=== PATIENT | male | born 1945 ===

== ENCOUNTER 2019-08-19 16:10 | Inpatient (IN) | payer MEDICARE ==
[2019-08-19] MEDS ORDERED: SODIUM CHLORIDE 0.9% 1000 ML IV SOLN IV ONE (17:08)
[2019-08-19] MEDS ORDERED: SODIUM CHLORIDE 0.9% 500 ML 500 ML IV ONE (17:08)
[2019-08-19 17:39] LABS: Hematocrit 27.4 % (35.5-45.6); Hemoglobin 9.3 gm/dl (11.8-15.2); Mean Corpuscular HGB Conc 34 % (32-34); Mean Corpuscular Volume 92 fl (84-94); Platelet Count 198 K/mm3 (140-440); Red Blood Count 2.99 M/mm3 (3.65-5.03); Red Cell Distribution Width 14.3 % (13.2-15.2)
[2019-08-19 17:49] LABS: INR 0.96 (0.87-1.13); Partial Thromboplastin Time 31.5 Sec. (24.2-36.6)
[2019-08-19 17:57] LABS: Albumin 2.7 g/dL (3.9-5); Calcium 8.3 mg/dL (8.4-10.2)
--- NOTE | 2019-08-19 17:58 | XRay Report ---
CHEST 1 VIEW 5:23 PM INDICATION / CLINICAL INFORMATION: Sepsis. Weakness. COMPARISON: None available. FINDINGS: SUPPORT DEVICES: There is a right jugular CVL with the tip overlying the cavoatrial junction. HEART / MEDIASTINUM: The heart size and pulmonary vasculature are normal. LUNGS / PLEURA: There is mild linear parenchymal opacity in both lower lung zones, left greater than right. No pneumothorax. ADDITIONAL FINDINGS: There are surgical changes in the mid to lower cervical spine. There are also martinez rgical changes involving the right shoulder. IMPRESSION: Mild bibasilar subsegmental atelectasis, greater on the left. Signer Name: Reji Mcconnell MD Signed: 08/19/2019 5:54 PM Workstation Name: [id number]
[2019-08-19] MEDS ORDERED: CEFEPIME/NS 2 GM/100 ML 2 GM/100 ML BAG IV SCH (18:00)
[2019-08-19] MEDS ORDERED: ACETAMINOPHEN 325 MG/10.15 ML ORAL LIQD UNIT DOSE PO ONE (18:20)
--- NOTE | 2019-08-19 18:24 | Emergency Department Report ---
ED General Adult HPI - General Chief complaint: Fever Stated complaint: BLOOD PRESSURE LOW Time Seen by Provider: 08/19/19 16:45 Source: patient, EMS ( EMS documentation not available at time of chart dictation ), RN notes reviewed, old records reviewed Mode of arrival: Stretcher Limitations: Physical Limitation - History of Present Illness Initial comments: Please note that during the entire history and physical examination, and for any further and repeat evaluations, I personally had complete personal protective equipment in place. Patient is a 74-year-old gentleman. He is not known to myself previously. His current primary care physician is Dr. Obrien. 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 He is sent to the emergency room by his detention for evaluation of low-grade temperature, tachycardia and hypotension. He denies physical pain. He denies new or different shortness of breath. He denies chest pain and abdominal pain. There is no complaint of hematemesis and/or bright red blood per rectum. As far as he knows, he has not been exposed to the coronavirus. -: unknown Radiation: other Severity scale (0 -10): 0 Quality: other Consistency: other Improves with: other Worsens with: other - Related Data Home Medications Medication Instructions Recorded Confirmed Last Taken Ascorbic Acid [Vitamin C] 500 mg PO QDAY 08/19/19 08/19/19 Unknown Bismuth Tribromoph/Petrolatum 1 each TP QDAY 08/19/19 08/19/19 Unknown [Xeroform 5"X9" Gauze Strip] Clopidogrel [Plavix] 75 mg PO QDAY 08/19/19 08/19/19 Unknown Clotrimazole 1% [Lotrimin 1%] 1 applic TP BID 08/19/19 08/19/19 Unknown Cyanocobalamin [Vitamin B-12] 500 mcg PO DAILY 08/19/19 08/19/19 Unknown Docusate Sodium [Colace CAP] 100 mg PO BID PRN 08/19/19 08/19/19 Unknown Dorzolamide/Timolol/Pf 1 each OP BID 08/19/19 08/19/19 Unknown [Dorzolamide-Timolol 2%-0.5%] Ferrous Sulfate [Feosol 325 MG tab] 325 mg PO QDAY 08/19/19 08/19/19 Unknown Folic Acid [Folvite] 1 mg PO QDAY 08/19/19 08/19/19 Unknown Furosemide [Lasix TAB] 40 mg PO QDAY 08/19/19 08/19/19 Unknown Gabapentin 300 mg PO BID 08/19/19 08/19/19 Unknown Lanolin /Mo/W.pet/[place] (Nf) 30 applic TP TID 08/19/19 08/19/19 Unknown [EUCERIN (nf)] Linagliptin [Tradjenta] 5 mg PO QDAY 08/19/19 08/19/19 Unknown Loratadine [Claritin] 10 mg PO QDAY 08/19/19 08/19/19 Unknown Oxycodone HCl [roxiCODONE] 30 mg PO Q6HR 08/19/19 08/19/19 Unknown Pantoprazole [Protonix TAB] 40 mg PO QDAY 08/19/19 08/19/19 Unknown Travoprost 5 ml OP QHS 08/19/19 08/19/19 Unknown diphenhydrAMINE [Benadryl CAP] 25 mg PO Q6HR PRN 08/19/19 08/19/19 Unknown Previous Rx's Medication Instructions Recorded Last Taken Type Acetaminophen [Acetaminophen TAB] 325 mg PO Q4H PRN #30 tablet 08/24/19 Unknown Rx Digoxin [Lanoxin] 0.125 mg PO DAILY@1700 #30 tablet 08/24/19 Unknown Rx Metoprolol [Lopressor TAB] 50 mg PO BID #60 tablet 08/24/19 Unknown Rx ceFAZolin/NS 2 GM/100 ML [Ancef/Ns 2 gm IM Q8HR #168 piggyback 08/24/19 Unknown Rx 2 gm/100 ml] oxyCODONE /ACETAMINOPHEN [Percocet 1 tab PO Q6H PRN #8 tablet 08/24/19 Unknown Rx 5/325 mg] Allergies Allergy/AdvReac Type Severity Reaction Status Date / Time NSAIDS (Non-Steroidal Allergy Unknown Verified 08/19/19 16:47 Anti-Inflamma ED Review of Systems ROS: Stated complaint: BLOOD PRESSURE LOW Other details as noted in HPI Constitutional: weakness Respiratory: denies: cough Cardiovascular: denies: syncope Gastrointestinal: denies: nausea, vomiting, hematemesis, melena, hematochezia Genitourinary: denies: dysuria Musculoskeletal: as per HPI, myalgia (Chronic) Skin: as per HPI Neurological: as per HPI, weakness Hematological/Lymphatic: denies: easy bleeding ED Past Medical Hx - Past Medical History Previous Medical History?: Yes Hx Hypertension: Yes Hx Diabetes: Yes Hx GERD: Yes Hx Renal Disease: Yes - Surgical History Past Surgical History?: No - Social History Smoking Status: Unknown if ever smoked - Medications Home Medications: Home Medications Medication Instructions Recorded Confirmed Last Taken Type Ascorbic Acid [Vitamin C] 500 mg PO QDAY 08/19/19 08/19/19 Unknown History Bismuth Tribromoph/Petrolatum 1 each TP QDAY 08/19/19 08/19/19 Unknown History [Xeroform 5"X9" Gauze Strip] Clopidogrel [Plavix] 75 mg PO QDAY 08/19/19 08/19/19 Unknown History Clotrimazole 1% [Lotrimin 1%] 1 applic TP BID 08/19/19 08/19/19 Unknown History Cyanocobalamin [Vitamin B-12] 500 mcg PO DAILY 08/19/19 08/19/19 Unknown History Docusate Sodium [Colace CAP] 100 mg PO BID PRN 08/19/19 08/19/19 Unknown History Dorzolamide/Timolol/Pf 1 each OP BID 08/19/19 08/19/19 Unknown History [Dorzolamide-Timolol 2%-0.5%] Ferrous Sulfate [Feosol 325 MG tab] 325 mg PO QDAY 08/19/19 08/19/19 Unknown History Folic Acid [Folvite] 1 mg PO QDAY 08/19/19 08/19/19 Unknown History Furosemide [Lasix TAB] 40 mg PO QDAY 08/19/19 08/19/19 Unknown History Gabapentin 300 mg PO BID 08/19/19 08/19/19 Unknown History Lanolin /Mo/W.pet/[place] (Nf) 30 applic TP TID 08/19/19 08/19/19 Unknown History [EUCERIN (nf)] Linagliptin [Tradjenta] 5 mg PO QDAY 08/19/19 08/19/19 Unknown History Loratadine [Claritin] 10 mg PO QDAY 08/19/19 08/19/19 Unknown History Oxycodone HCl [roxiCODONE] 30 mg PO Q6HR 08/19/19 08/19/19 Unknown History Pantoprazole [Protonix TAB] 40 mg PO QDAY 08/19/19 08/19/19 Unknown History Travoprost 5 ml OP QHS 08/19/19 08/19/19 Unknown History diphenhydrAMINE [Benadryl CAP] 25 mg PO Q6HR PRN 08/19/19 08/19/19 Unknown History Acetaminophen [Acetaminophen TAB] 325 mg PO Q4H PRN #30 tablet 08/24/19 Unknown Rx Digoxin [Lanoxin] 0.125 mg PO DAILY@1700 #30 tablet 08/24/19 Unknown Rx Metoprolol [Lopressor TAB] 50 mg PO BID #60 tablet 08/24/19 Unknown Rx ceFAZolin/NS 2 GM/100 ML [Ancef/Ns 2 gm IM Q8HR #168 piggyback 08/24/19 Unknown Rx 2 gm/100 ml] oxyCODONE /ACETAMINOPHEN [Percocet 1 tab PO Q6H PRN #8 tablet 08/24/19 Unknown Rx 5/325 mg] ED Physical Exam - General Limitations: Physical Limitation General appearance: alert, anxious - Head Head exam: Present: atraumatic, normocephalic - Eye Eye exam: Present: normal appearance, EOMI - ENT ENT exam: Present: mucous membranes dry, normal external ear exam - Neck Neck exam: Present: normal inspection, full ROM. Absent: tenderness, meningismus - Respiratory Respiratory exam: Present: normal lung sounds bilaterally. Absent: respiratory distress, wheezes, rales, rhonchi, stridor, decreased breath sounds - Cardiovascular Cardiovascular Exam: Present: tachycardia, normal heart sounds. Absent: systolic murmur, diastolic murmur, rubs, gallop - GI/Abdominal GI/Abdominal exam: Present: soft. Absent: distended, tenderness, guarding, rebound, rigid, pulsatile mass - Rectal Rectal exam: Present: deferred - Extremities Exam Extremities exam: Present: normal inspection, pedal edema, other (2+ pulses noted in the bilateral upper and lower extremities. There is no palpable cord. negative Homans sign. Muscular compartments are soft. The pelvis is stable.). Absent: calf tenderness - Back Exam Back exam: Present: normal inspection. Absent: tenderness, CVA tenderness (R), CVA tenderness (L), paraspinal tenderness, vertebral tenderness - Neurological Exam Neurological exam: Present: alert, other (There is no facial droop. The tongue is midline. Extraocular movements are intact bilaterally. There is 5 out of 5 strength in bilateral upper and lower extremities. Sensation is intact to light touch bilateral upper and lower extremities. ) - Psychiatric Psychiatric exam: Present: normal affect, normal mood - Skin Skin exam: Present: warm, dry, intact, normal color. Absent: rash ED Course Vital Signs 08/19/19 08/19/19 08/19/19 16:41 16:45 16:52 Temperature 99.3 F Pulse Rate 153 H 153 H Respiratory 11 L 13 Rate Blood Pressure 94/66 Blood Pressure 93/61 [Right] O2 Sat by Pulse 97 Oximetry 08/19/19 08/19/19 08/19/19 18:16 18:20 19:00 Temperature Pulse Rate 152 H 150 H Respiratory 11 L 13 14 Rate Blood Pressure 91/64 96/64 Blood Pressure [Right] O2 Sat by Pulse 83 L 60 L Oximetry 08/19/19 08/19/19 08/19/19 19:35 19:46 20:00 Temperature Pulse Rate 147 H 140 H 147 H Respiratory 16 14 Rate Blood Pressure 96/64 100/59 110/64 Blood Pressure [Right] O2 Sat by Pulse Oximetry 08/19/19 08/19/19 08/19/19 20:16 20:30 20:46 Temperature Pulse Rate 149 H 151 H 152 H Respiratory 16 12 18 Rate Blood Pressure 96/64 109/73 109/73 Blood Pressure [Right] O2 Sat by Pulse 83 L 97 Oximetry 08/19/19 08/19/19 08/19/19 20:51 21:00 21:16 Temperature Pulse Rate 152 H 143 H 142 H Respiratory 16 14 Rate Blood Pressure 109/73 109/73 109/73 Blood Pressure [Right] O2 Sat by Pulse 99 100 Oximetry 08/19/19 08/19/19 08/19/19 21:30 21:46 22:00 Temperature Pulse Rate 138 H 147 H 152 H Respiratory 14 15 16 Rate Blood Pressure 109/73 109/73 109/73 Blood Pressure [Right] O2 Sat by Pulse 99 91 Oximetry 08/19/19 08/19/19 08/19/19 22:16 22:28 22:30 Temperature Pulse Rate 129 H 127 H 127 H Respiratory 14 11 L 12 Rate Blood Pressure 109/73 109/73 98/59 Blood Pressure [Right] O2 Sat by Pulse 100 100 98 Oximetry 08/19/19 08/19/19 08/20/19 23:00 23:30 00:00 Temperature Pulse Rate 126 H 112 H 116 H Respiratory 16 18 16 Rate Blood Pressure 98/59 89/54 88/54 Blood Pressure [Right] O2 Sat by Pulse 99 95 71 L Oximetry 08/20/19 08/20/19 08/20/19 00:30 01:00 01:30 Temperature Pulse Rate 108 H 95 H 95 H Respiratory 16 17 18 Rate Blood Pressure 82/47 78/42 76/42 Blood Pressure [Right] O2 Sat by Pulse 100 Oximetry 08/20/19 08/20/19 08/20/19 02:00 02:30 03:00 Temperature Pulse Rate 91 H 99 H 112 H Respiratory 17 18 18 Rate Blood Pressure 85/43 89/48 94/35 Blood Pressure [Right] O2 Sat by Pulse 98 62 L Oximetry 08/20/19 08/20/19 08/20/19 03:30 04:00 04:30 Temperature Pulse Rate 125 H 129 H 121 H Respiratory 19 16 19 Rate Blood Pressure 95/53 95/53 80/49 Blood Pressure [Right] O2 Sat by Pulse 60 L Oximetry 08/20/19 08/20/19 08/20/19 05:00 05:30 06:00 Temperature Pulse Rate 126 H 118 H 115 H Respiratory 11 L 20 21 Rate Blood Pressure 80/49 92/57 95/59 Blood Pressure [Right] O2 Sat by Pulse 97 98 Oximetry 08/20/19 08/20/19 08/20/19 06:30 07:00 07:30 Temperature Pulse Rate 111 H 114 H 115 H Respiratory 21 22 22 Rate Blood Pressure 93/58 85/52 92/55 Blood Pressure [Right] O2 Sat by Pulse 92 100 100 Oximetry 08/20/19 08/20/19 08/20/19 08:00 08:30 09:00 Temperature 99.4 F Pulse Rate 116 H 111 H 123 H Respiratory 17 22 20 Rate Blood Pressure 91/54 100/61 Blood Pressure 87/55 [Right] O2 Sat by Pulse 99 98 100 Oximetry 08/20/19 08/20/19 08/20/19 09:30 10:00 10:30 Temperature Pulse Rate 123 H Respiratory 24 22 22 Rate Blood Pressure 98/55 99/56 96/54 Blood Pressure [Right] O2 Sat by Pulse 98 96 97 Oximetry 08/20/19 08/20/19 08/20/19 11:00 11:30 12:00 Temperature Pulse Rate Respiratory 24 21 22 Rate Blood Pressure 104/58 102/56 95/60 Blood Pressure [Right] O2 Sat by Pulse 93 97 100 Oximetry 08/20/19 08/20/19 08/20/19 12:30 13:00 13:30 Temperature Pulse Rate Respiratory 20 20 26 H Rate Blood Pressure 91/55 101/58 100/59 Blood Pressure [Right] O2 Sat by Pulse 100 96 98 Oximetry 08/20/19 14:00 Temperature Pulse Rate 132 H Respiratory 26 H Rate Blood Pressure 110/64 Blood Pressure [Right] O2 Sat by Pulse Oximetry - Reevaluation(s) Reevaluation #1: 08/19/19 18:49 Differential diagnosis, including but not limited to: Pneumonia, bacteremia, viremia, urinary tract infection, arrhythmia, dehydration, pulmonary embolism Assessment and plan: 74-year-old gentleman presenting with low-grade temperature, narrow complex regular tachycardia, uncertain if SVT versus a flutter with 2-1 conduction versus sinus tachycardia. We will treat him empirically according to the sepsis pathway. He will be started on unfractionated heparin, and we will obtain a CT scan of the chest. He is currently placed on isolation precautions given relative immune compromise. He will be treated empirically with cefepime. He reports that he does not have true anaphylaxis or anaphylactoid reaction to acetaminophen. We will reassess after his initial resuscitation and CT scan have resulted. The case was presented to the hospital physician, Dr. Joshua Lawson WHO will admit the patient 08/19/19 18:50 we will also fill out a covid 19 pui form, although based off of the history and physical examination at this time, I think coronavirus infection is very unlikely. Reevaluation #2: 08/19/19 18:51 Plan to repeat 12-lead EKG with sree lead lead application Reevaluation #3: 08/19/19 19:51 Blood pressure improved. Heart rate now in the high 130s. Repeat EKG with Sree leads suggests a flutter with 2-[address] scan of the chest pending interpretation. Reevaluation #4: 08/19/19 20:39 Patient still remains in a flutter with 2-1 conduction and rapid ventricular rate. Diltiazem drip is ordered. CT scan is appreciated. Hospital physician is updated. We will fill out to the coronavirus persons under investigation form. ED Medical Decision Making - Lab Data Result diagrams: 08/23/19 04:28 08/23/19 04:28 Vital Signs 08/19/19 08/19/19 08/19/19 16:41 16:45 16:52 Temperature 99.3 F Pulse Rate 153 H 153 H Respiratory 11 L 13 Rate Blood Pressure 94/66 Blood Pressure 93/61 [Right] O2 Sat by Pulse 97 Oximetry 08/19/19 18:16 Temperature Pulse Rate 152 H Respiratory 11 L Rate Blood Pressure 91/64 Blood Pressure [Right] O2 Sat by Pulse 83 L Oximetry Lab Results 08/19/19 08/19/19 08/19/19 Range/Units 17:18 17:18 17:18 WBC 7.7 (4.5-11.0) K/mm3 RBC 2.99 L (3.65-5.03) M/mm3 Hgb 9.3 L (11.8-15.2) gm/dl Hct 27.4 L (35.5-45.6) % MCV 92 (84-94) fl MCH 31 (28-32) pg MCHC 34 (32-34) % RDW 14.3 (13.2-15.2) % Plt Count 198 (140-440) K/mm3 PT 12.9 (12.2-14.9) Sec. INR 0.96 (0.87-1.13) APTT 31.5 (24.2-36.6) Sec. Sodium 129 L (137-145) mmol/L Potassium 3.9 (3.6-5.0) mmol/L Chloride 92.5 L (98-107) mmol/L Carbon Dioxide 23 (22-30) mmol/L Anion Gap 17 mmol/L BUN 24 H (9-20) mg/dL Creatinine 1.5 (0.8-1.5) mg/dL Estimated GFR 46 ml/min BUN/Creatinine Ratio 16 % Glucose 152 H (75-100) mg/dL Lactic Acid (0.7-2.0) mmol/L Calcium 8.3 L (8.4-10.2) mg/dL Magnesium (1.7-2.3) mg/dL Total Bilirubin 0.70 (0.1-1.2) mg/dL AST 35 (5-40) units/L ALT 14 (7-56) units/L Alkaline Phosphatase 132 H (35-129) units/L Total Creatine Kinase (55-170) units/L Total Protein 5.1 L (6.3-8.2) g/dL Albumin 2.7 L (3.9-5) g/dL Albumin/Globulin Ratio 1.1 % TSH (0.270-4.200) mlU/mL Salicylates (2.8-20.0) mg/dL Acetaminophen (10.0-30.0) ug/mL Blood Type Antibody Screen 08/19/19 08/19/19 08/19/19 Range/Units 17:18 17:18 17:18 WBC (4.5-11.0) K/mm3 RBC (3.65-5.03) M/mm3 Hgb (11.8-15.2) gm/dl Hct (35.5-45.6) % MCV (84-94) fl MCH (28-32) pg MCHC (32-34) % RDW (13.2-15.2) % Plt Count (140-440) K/mm3 PT (12.2-14.9) Sec. INR (0.87-1.13) APTT (24.2-36.6) Sec. Sodium (137-145) mmol/L Potassium (3.6-5.0) mmol/L Chloride (98-107) mmol/L Carbon Dioxide (22-30) mmol/L Anion Gap mmol/L BUN (9-20) mg/dL Creatinine (0.8-1.5) mg/dL Estimated GFR ml/min BUN/Creatinine Ratio % Glucose (75-100) mg/dL Lactic Acid 0.80 (0.7-2.0) mmol/L Calcium (8.4-10.2) mg/dL Magnesium 1.80 (1.7-2.3) mg/dL Total Bilirubin (0.1-1.2) mg/dL AST (5-40) units/L ALT (7-56) units/L Alkaline Phosphatase (35-129) units/L Total Creatine Kinase 27 L (55-170) units/L Total Protein (6.3-8.2) g/dL Albumin (3.9-5) g/dL Albumin/Globulin Ratio % TSH 2.660 (0.270-4.200) mlU/mL Salicylates (2.8-20.0) mg/dL Acetaminophen (10.0-30.0) ug/mL Blood Type Antibody Screen 08/19/19 08/19/19 08/19/19 Range/Units 17:18 17:18 17:25 WBC (4.5-11.0) K/mm3 RBC (3.65-5.03) M/mm3 Hgb (11.8-15.2) gm/dl Hct (35.5-45.6) % MCV (84-94) fl MCH (28-32) pg MCHC (32-34) % RDW (13.2-15.2) % Plt Count (140-440) K/mm3 PT (12.2-14.9) Sec. INR (0.87-1.13) APTT (24.2-36.6) Sec. Sodium (137-145) mmol/L Potassium (3.6-5.0) mmol/L Chloride (98-107) mmol/L Carbon Dioxide (22-30) mmol/L Anion Gap mmol/L BUN (9-20) mg/dL Creatinine (0.8-1.5) mg/dL Estimated GFR ml/min BUN/Creatinine Ratio % Glucose (75-100) mg/dL Lactic Acid (0.7-2.0) mmol/L Calcium (8.4-10.2) mg/dL Magnesium (1.7-2.3) mg/dL Total Bilirubin (0.1-1.2) mg/dL AST (5-40) units/L ALT (7-56) units/L Alkaline Phosphatase (35-129) units/L Total Creatine Kinase (55-170) units/L Total Protein (6.3-8.2) g/dL Albumin (3.9-5) g/dL Albumin/Globulin Ratio % TSH (0.270-4.200) mlU/mL Salicylates < 0.3 L (2.8-20.0) mg/dL Acetaminophen < 5.0 L (10.0-30.0) ug/mL Blood Type O POSITIVE Antibody Screen Negative - EKG Data -: EKG Interpreted by Ne Rate: tachycardia - EKG Data When compared to previous EKG there are: previous EKG unavailable 08/19/19 18:50 This is a narrow complex tachycardia, rate 150 bpm, normal axis, the QTC is 504 ms. Rhythm uncertain, sinus tach versus SVT versus a flutter. We will reassess. - Radiology Data Radiology results: report reviewed, image reviewed Print Report Referring Physician: SAI GALARZA Patient Name: LANDRY MONTE Date of : 1945 Sex: Male Report Date: 2019-08-19 Report Status: Finalized Findings [facility] [address] [place] [address] XRay Report Signed Patient: LANDRY MONTE MR#: [id number] : 1945 Acct:[id number] Age/Sex: 74 / M ADM Date: 08/19/19 Loc: ED Attending Dr: Ambrose davis Physician: SAI GALARZA MD Date of Service: 08/19/19 Procedure(s): XR chest 1V ap Accession Number(s): [id number] cc: SAI GALARZA MD Fluoro Time In Minutes: CHEST 1 VIEW 5:23 PM INDICATION / CLINICAL INFORMATION: Sepsis. Weakness. COMPARISON: None available. FINDINGS: SUPPORT DEVICES: There is a right jugular CVL with the tip overlying the cavoatrial junction. HEART / MEDIASTINUM: The heart size and pulmonary vasculature are normal. LUNGS / PLEURA: There is mild linear parenchymal opacity in both lower lung zones, left greater than right. No pneumothorax. ADDITIONAL FINDINGS: There are surgical changes in the mid to lower cervical spine. There are also surgical changes involving the right shoulder. IMPRESSION: Mild bibasilar subsegmental atelectasis, greater on the left. Signer Name: Reji Mcconnell MD Signed: 08/19/2019 5:54 PM Workstation Name: [id number] Transcribed By: RT Dictated By: Reji Mcconnell MD Electronically Authenticated By: Reji Mcconnell MD Signed Date/Time: 08/19/191753 DD/ 51 TD/TT: Print Report Referring Physician: SAI GALARZA Patient Name: LANDRY MONTE Date of : 1945 Sex: Male Report Date: 2019-08-19 Report Status: Finalized Findings [facility] [address] [place] [address] Cat Scan Report Signed Patient: LANDRY MONTE MR#: [id number] : 1945 Acct:[id number] Age/Sex: 74 / M ADM Date: 08/19/19 Loc: 4A [id number]: JAQUELINE LAWSON MD Ordering Physician: SAI GALARZA MD Date of Service: 08/19/19 Procedure(s): CT angio chest Accession Number(s): [id number] cc: SAI GALARZA MD CTA CHEST WITH IV CONTRAST INDICATION / CLINICAL INFORMATION: Tachycardia, fever, hypotension, cancer. TECHNIQUE: Axial CT images were obtained through the chest after injection of 100 mL Omnipaque 350 IV contrast. 3 plane MIP and/or 3D reconstructions were produced. All CT scans at this loca tion are performed using CT dose reduction for ALARA by means of automated exposure control. COMPARISON: Same-day chest radiograph FINDINGS: PULMONARY ARTERIES: No pulmonary emboli. THORACIC AORTA: No significant abnormality. HEART: No significant abnormality. PLEURA: Tiny bilateral pleural effusions. No pneumothorax. LYMPH NODES: There are enlarged lower cervical, supraclavicular, axillary, and mediastinal lymph nodes. LUNGS: Ill-defined linear opacities in both lower lobes posteriorly may represent atelectatic change, aspirated material and/or mild/early pneumonia. There is no large area of consolidated lung parenchyma. Definite atelectatic change is seen in the subpleural lower lobes at the bases, likely due to the presence of a small volumes of pleural fluid. At the apex of the right lung there is linear fibrotic scarring associated with some calcifications. No pulmonary mass or significant discrete pulmonary nodule is identified. There is an ill-defined groundglass opacity in the subpleural left upper lobe on series 3 image 53 ADDITIONAL FINDINGS: Diffuse body wall edema. The tip of the right IJ central line is at the atriocaval junction. UPPER ABDOMEN: Marked splenomegaly. There are enlarged retroperitoneal/aortocaval lymph nodes in the upper abdomen. Evaluation is limited secondary to pulmonary arterial phase of acquisition and beam hardening artifact caused by soft tissue edema. SKELETAL STRUCTURES: No significant osseous abnormality. IMPRESSION: 1. No CT evidence for pulmonary embolism. 2 . Areas of groundglass opacity in the left upper lobe and linear opacities in the lower lobes posteriorly may be from an infectious or inflammatory process. Three-month follow-up CT is recommended to confirm resolution. 3. Tiny bilateral pleural effusions. 4. Splenomegaly and widespread lymphadenopathy are suggestive of an underlying lymphoproliferative disorder. 5. Anasarca. Signer Name: Ori De La Rosa MD Signed: 08/19/2019 8:08 PM Workstation Name: [id number] Transcribed By: HERB Dictated By: Ori De La Rosa MD Electronically Authenticated By: Ori De La Rosa MD Signed Date/Time: 08/19/192007 Critical Care Time: Yes Critical care time in (mins) excluding proc time.: 60 Critical care attestation.: If time is entered above; I have spent that time in minutes in the direct care of this critically ill patient, excluding procedure time. ED Disposition Clinical Impression: Hypotension, Atrial flutter with rapid ventricular response Disposition: DC-[id number] OP ADMIT IP TO THIS HOSP Is pt being admited?: Yes Does the pt Need Aspirin: No Condition: Stable
[2019-08-19] MEDS ORDERED: HEPARIN 10,000 UNITS/10 ML VIAL IV ONE (18:43)
[2019-08-19 19:00] LABS: Basophils % (Manual) 0 % (0.0-1.8); Eosinophils % (Manual) 0 % (0.0-4.3); Total Cells Counted 100
[2019-08-19 19:01] LABS: Anisocytosis 1+; Hypochromasia Few
[2019-08-19 19:02] LABS: Platelet Estimate Consistent w Auto; Tear Drop Cells Rare
[2019-08-19] MEDS: HEPARIN/ 0.45% NACL DRIP 25,000 UNIT/500 ML BAG IV SCH (19:11)
--- NOTE | 2019-08-19 20:12 | Cat Scan Report ---
CTA CHEST WITH IV CONTRAST INDICATION / CLINICAL INFORMATION: Tachycardia, fever, hypotension, cancer. TECHNIQUE: Axial CT images were obtained through the chest after injection of 100 mL Omnipaque 350 IV contrast. 3 plane MIP and/or 3D reconstructions were produced. All CT scans at this location are performed usin g CT dose reduction for DERRICK by means of automated exposure control. COMPARISON: Same-day chest radiograph FINDINGS: PULMONARY ARTERIES: No pulmonary emboli. THORACIC AORTA: No significant abnormality. HEART: No significant abnormality. PLEURA: Tiny bilateral pleural effusions. No pneumothorax. LYMPH NODES: There are enlarged lower cervical, supraclavicular, axillary, and mediastinal lymph node s. LUNGS: Ill-defined linear opacities in both lower lobes posteriorly may represent atelectatic change, aspirated material and/or mild/early pneumonia. There is no large area of consolidated lung parenchy ma. Definite atelectatic change is seen in the subpleural lower lobes at the bases, likely due to the presence of a small volumes of pleural fluid. At the apex of the right lung there is linear fibrotic scarring associated with some calcifications. No pulmonary mass or significant discrete pulmonary nodule is identified. There is an ill-defined frank undglass opacity in the subpleural left upper lobe on series 3 image 53 ADDITIONAL FINDINGS: Diffuse body wall edema. The tip of the right IJ central line is at the atriocav al junction. UPPER ABDOMEN: Marked splenomegaly. There are enlarged retroperitoneal/aortocaval lymph nodes in the upper abdomen. Evaluation is limited secondary to pulmonary arterial phase of acquisition and beam fontaine rdening artifact caused by soft tissue edema. SKELETAL STRUCTURES: No significant osseous abnormality. IMPRESSION: 1. No CT evidence for pulmonary embolism. 2. Areas of groundglass opacity in the left upper lobe and linear opacities in the lower lobes poste riorly may be from an infectious or inflammatory process. Three-month follow-up CT is recommended to confirm resolution. 3. Tiny bilateral pleural effusions. 4. Splenomegaly and widespread lymphadenopathy are suggestive of an underlying lymphoproliferative d isorder. 5. Anasarca. Signer Name: Ori De La Rosa MD Signed: 08/19/2019 8:08 PM Workstation Name: [id number]
[2019-08-19 20:32] LABS: Hematocrit 27.3 % (35.5-45.6); Hemoglobin 9.4 gm/dl (11.8-15.2)
[2019-08-19 20:34] LABS: Bacteria,Urine 1+ /HPF (Negative); Bilirubin,Urine NEG (Negative); Blood,Urine NEG (Negative); Color,Urine Yellow (Yellow); Mucus,Urine FEW /HPF; Urobilinogen,Urine < 2.0 mg/dL (<2.0)
[2019-08-19] MEDS ORDERED: dilTIAZem/D5W 100 MG/100 ML BAG IV SCH (21:00)
[2019-08-19] MEDS ORDERED: DORZOLAMIDE OP SCH (23:45)
[2019-08-19] MEDS ORDERED: TIMOLOL OP SCH (23:45)
[2019-08-19] MEDS ORDERED: diphenhydrAMINE 25 MG CAP PO PRN (23:47)
[2019-08-19] MEDS ORDERED: DOCUSATE SODIUM 100 MG CAP PO PRN (23:47)
--- NOTE | 2019-08-19 23:58 | History and Physical Report ---
History of Present Illness Date of examination: 08/19/19 Date of admission: 08/19/19 18:53 Chief complaint: Fever--2 to 3 days Palpitations History of present illness: 74-year-old male with history of glaucoma, CHF, type 2 diabetes, GERD and anemia and peripheral neuropathy sent from [facility] for low-grade fever: Tachycardia and hypotension. No chest pain. No shortness of breath. No chills. Patient has palpitations. Patient has A. fib with RVR in the emergency room. Patient was found to have bilateral patchy pneumonia--hence being admitted for rule out covid 19, isolation and empiric antibiotics. Not in any respiratory distress. No exposure to coronavirus. No recent travel. Because of the chest x-ray experience with some groundglass opacity C ovid19 form was filled out by ER physician Dr. miguel Past Medical History Previous Medical History?: Yes Hypertension: Yes Diabetes: Yes GERD: Yes Renal Disease: Yes Surgical History Past Surgical History?: No Family history Htn Social History Smoking Status: Unknown if ever smoked - Medications Home Medications: Home Medications Medication Instructions Recorded Confirmed Last Taken Type Ascorbic Acid [Vitamin C] 500 mg PO QDAY 08/19/19 08/19/19 Unknown History Bismuth Tribromoph/Petrolatum 1 each TP QDAY 08/19/19 08/19/19 Unknown History [Xeroform 5"X9" Gauze Strip] Clopidogrel [Plavix] 75 mg PO QDAY 08/19/19 08/19/19 Unknown History Clotrimazole 1% [Lotrimin] 1 applic TP BID 08/19/19 08/19/19 Unknown History Cyanocobalamin [Vitamin B-12] 500 mcg PO DAILY 08/19/19 08/19/19 Unknown History Docusate Sodium [Colace] 100 mg PO BID PRN 08/19/19 08/19/19 Unknown History Dorzolamide/Timolol/Pf 1 each OP BID 08/19/19 08/19/19 Unknown History [Dorzolamide-Timolol 2%-0.5%] Ferrous Sulfate [Feosol] 325 mg PO QDAY 08/19/19 08/19/19 Unknown History Folic Acid [Folvite] 1 mg PO QDAY 08/19/19 08/19/19 Unknown History Furosemide [Lasix TAB] 40 mg PO QDAY 08/19/19 08/19/19 Unknown History Gabapentin [Neurontin] 300 mg PO BID 08/19/19 08/19/19 Unknown History Lanolin /Mo/W.pet/[place] (Nf) 30 applic TP TID 08/19/19 08/19/19 Unknown History [EUCERIN (nf)] Linagliptin [Tradjenta] 5 mg PO QDAY 08/19/19 08/19/19 Unknown History Loratadine [Claritin] 10 mg PO QDAY 08/19/19 08/19/19 Unknown History Oxycodone HCl [roxiCODONE] 30 mg PO Q6HR 08/19/19 08/19/19 Unknown History Pantoprazole [Protonix] 40 mg PO QDAY 08/19/19 08/19/19 Unknown History Travoprost 5 ml OP QHS 08/19/19 08/19/19 Unknown History diphenhydrAMINE [Benadryl CAP] 25 mg PO Q6HR PRN 08/19/19 08/19/19 Unknown History Review of Systems ROS: Stated complaint: BLOOD PRESSURE LOW Other details as noted in HPI Constitutional: weakness Respiratory: denies: cough Cardiovascular: denies: syncope Gastrointestinal: denies: nausea, vomiting, hematemesis, melena, hematochezia Genitourinary: denies: dysuria Musculoskeletal: as per HPI, myalgia (Chronic) Skin: as per HPI Neurological: as per HPI, weakness Hematological/Lymphatic: denies: easy bleeding Medications and Allergies Allergies Allergy/AdvReac Type Severity Reaction Status Date / Time NSAIDS (Non-Steroidal Allergy Unknown Verified 08/19/19 16:47 Anti-Inflamma Home Medications Medication Instructions Recorded Confirmed Last Taken Type Ascorbic Acid [Vitamin C] 500 mg PO QDAY 08/19/19 08/19/19 Unknown History Bismuth Tribromoph/Petrolatum 1 each TP QDAY 08/19/19 08/19/19 Unknown History [Xeroform 5"X9" Gauze Strip] Clopidogrel [Plavix] 75 mg PO QDAY 08/19/19 08/19/19 Unknown History Clotrimazole 1% [Lotrimin] 1 applic TP BID 08/19/19 08/19/19 Unknown History Cyanocobalamin [Vitamin B-12] 500 mcg PO DAILY 08/19/19 08/19/19 Unknown History Docusate Sodium [Colace] 100 mg PO BID PRN 08/19/19 08/19/19 Unknown History Dorzolamide/Timolol/Pf 1 each OP BID 08/19/19 08/19/19 Unknown History [Dorzolamide-Timolol 2%-0.5%] Ferrous Sulfate [Feosol] 325 mg PO QDAY 08/19/19 08/19/19 Unknown History Folic Acid [Folvite] 1 mg PO QDAY 08/19/19 08/19/19 Unknown History Furosemide [Lasix TAB] 40 mg PO QDAY 08/19/19 08/19/19 Unknown History Gabapentin [Neurontin] 300 mg PO BID 08/19/19 08/19/19 Unknown History Lanolin /Mo/W.pet/[place] (Nf) 30 applic TP TID 08/19/19 08/19/19 Unknown History [EUCERIN (nf)] Linagliptin [Tradjenta] 5 mg PO QDAY 08/19/19 08/19/19 Unknown History Loratadine [Claritin] 10 mg PO QDAY 08/19/19 08/19/19 Unknown History Oxycodone HCl [roxiCODONE] 30 mg PO Q6HR 08/19/19 08/19/19 Unknown History Pantoprazole [Protonix] 40 mg PO QDAY 08/19/19 08/19/19 Unknown History Travoprost 5 ml OP QHS 08/19/19 08/19/19 Unknown History diphenhydrAMINE [Benadryl CAP] 25 mg PO Q6HR PRN 08/19/19 08/19/19 Unknown History Active Meds: Active Medications Ascorbic Acid (Vitamin C) 500 mg PO QDAY LUIS FELIPE Clopidogrel Bisulfate (Plavix) 75 mg PO QDAY LUIS FELIPE Cyanocobalamin (Vitamin B-12) 500 mcg PO DAILY LUIS FELIPE Diphenhydramine HCl (Benadryl) 25 mg PO Q6HR PRN PRN Reason: Itching Docusate Sodium (Colace) 100 mg PO BID PRN PRN Reason: Constipation Ferrous Sulfate (Feosol) 325 mg PO QDAY LUIS FELIPE Folic Acid (Folvite) 1 mg PO QDAY LUIS FELIPE Furosemide (Lasix) 40 mg PO QDAY LUIS FELIPE Gabapentin (Gabapentin) 300 mg PO BID LUIS FELIPE Cefepime HCl (Cefepime/Ns 2 Gm/100 Ml) 2 gm in 100 mls @ 200 mls/hr IV NOW LUIS FELIPE; Protocol Last Admin: 08/19/19 18:14 Dose: 200 mls/hr Documented by: Heparin Sodium/Sodium Chloride (Heparin/ 0.45% Nacl-25,000 Unit/500 Ml) 25,000 unit in 500 mls @ 23 mls/hr IV TITR LUIS FELIPE; Protocol Last Admin: 08/19/19 19:11 Dose: 1,150 units/hr, 23 mls/hr Documented by: Diltiazem HCl (Cardizem/D5w 100mg/100ml) 100 mg in 100 mls @ 5 mls/hr IV TITR LUIS FELIPE; Protocol Last Admin: 08/19/19 20:51 Dose: 5 mg/hr, 5 mls/hr Documented by: Linagliptin (Tradjenta) 5 mg PO QDAY LUIS FELIPE Miscellaneous Medication (Dorzolamide/Timolol/Pf [Dorzolamide-Timolol 2%-0.5%]) 1 each OP BID LUIS FELIPE Miscellaneous Medication (Loratadine [Claritin]) 10 mg PO QDAY LUIS FELIPE Miscellaneous Medication (Travoprost [Travoprost]) 5 ml OP QHS LUIS FELIPE Pantoprazole Sodium (Protonix) 40 mg PO QDAY LUIS FELIPE Exam - Constitutional Vitals: Temp Pulse Resp BP Pulse Ox 99.3 F 129 H 14 109/73 100 08/19/19 16:52 08/19/19 22:16 08/19/19 22:16 08/19/19 22:16 08/19/19 22:16 General appearance: Present: no acute distress, well-nourished - EENT Eyes: Present: PERRL ENT: hearing intact, clear oral mucosa - Neck Neck: Present: supple, normal ROM - Respiratory Respiratory effort: normal Respiratory: bilateral: CTA - Cardiovascular Heart rate: 130 Rhythm: irregularly irregular Heart Sounds: Present: S1 & S2. Absent: rub, click - Extremities Extremities: no ischemia, pulses intact, pulses symmetrical, No edema Peripheral Pulses: within normal limits - Abdominal General gastrointestinal: Present: soft, non-tender, non-distended, normal bowel sounds Male genitourinary: Present: normal - Rectal Rectal Exam: deferred - Integumentary Integumentary: Present: clear, warm, dry - Musculoskeletal Musculoskeletal: gait normal, strength equal bilaterally - Psychiatric Psychiatric: appropriate mood/affect, intact judgment & insight - Neurologic Neurologic: CNII-XII intact, moves all extremities - Allied Health Allied health notes reviewed: nursing, case management CHENCHO score - Chencho Score Age > 65: (1) Yes Aspirin use within the Past 7 Days: (1) Yes 3 or more CAD Risk Factors: (1) Yes 2 or more Angina events in past 24 hrs: (0) No Known CAD with more than 50% Stenosis: (0) No Elevated Cardiac Markers: (0) No ST Deviation Greater than 0.5mm: (0) No CHENCHO Score: 3 Results - Labs CBC & Chem 7: 08/19/19 20:11 08/19/19 17:18 Labs: Laboratory Last Values WBC 7.7 K/mm3 (4.5-11.0) 08/19/19 17:18 RBC 2.99 M/mm3 (3.65-5.03) L 08/19/19 17:18 Hgb 9.4 gm/dl (11.8-15.2) L 08/19/19 20:11 Hct 27.3 % (35.5-45.6) L 08/19/19 20:11 MCV 92 fl (84-94) 08/19/19 17:18 MCH 31 pg (28-32) 08/19/19 17:18 MCHC 34 % (32-34) 08/19/19 17:18 RDW 14.3 % (13.2-15.2) 08/19/19 17:18 Plt Count 198 K/mm3 (140-440) 08/19/19 17:18 Add Manual Diff Complete 08/19/19 17:18 Total Counted 100 08/19/19 17:18 Seg Neuts % (Manual) 86.0 % (40.0-70.0) H 08/19/19 17:18 Band Neutrophils % 0 % 08/19/19 17:18 Lymphocytes % (Manual) 11.0 % (13.4-35.0) L 08/19/19 17:18 Reactive Lymphs % (Man) 0 % 08/19/19 17:18 Monocytes % (Manual) 3.0 % (0.0-7.3) 08/19/19 17:18 Eosinophils % (Manual) 0 % (0.0-4.3) 08/19/19 17:18 Basophils % (Manual) 0 % (0.0-1.8) 08/19/19 17:18 Metamyelocytes % 0 % 08/19/19 17:18 Myelocytes % 0 % 08/19/19 17:18 Promyelocytes % 0 % 08/19/19 17:18 Blast Cells % 0 % 08/19/19 17:18 Nucleated RBC % Not Reportable 08/19/19 17:18 Seg Neutrophils # Man 6.6 K/mm3 (1.8-7.7) 08/19/19 17:18 Band Neutrophils # 0.0 K/mm3 08/19/19 17:18 Lymphocytes # (Manual) 0.8 K/mm3 (1.2-5.4) L 08/19/19 17:18 Abs React Lymphs (Man) 0.0 K/mm3 08/19/19 17:18 Monocytes # (Manual) 0.2 K/mm3 (0.0-0.8) 08/19/19 17:18 Eosinophils # (Manual) 0.0 K/mm3 (0.0-0.4) 08/19/19 17:18 Basophils # (Manual) 0.0 K/mm3 (0.0-0.1) 08/19/19 17:18 Metamyelocytes # 0.0 K/mm3 08/19/19 17:18 Myelocytes # 0.0 K/mm3 08/19/19 17:18 Promyelocytes # 0.0 K/mm3 08/19/19 17:18 Blast Cells # 0.0 K/mm3 08/19/19 17:18 WBC Morphology Not Reportable 08/19/19 17:18 Hypersegmented Neuts Not Reportable 08/19/19 17:18 Hyposegmented Neuts Not Reportable 08/19/19 17:18 Hypogranular Neuts Not Reportable 08/19/19 17:18 Smudge Cells Not Reportable 08/19/19 17:18 Toxic Granulation Not Reportable 08/19/19 17:18 Toxic Vacuolation Not Reportable 08/19/19 17:18 Dohle Bodies Not Reportable 08/19/19 17:18 Pelger-Huet Anomaly Not Reportable 08/19/19 17:18 Josue Rods Not Reportable 08/19/19 17:18 Platelet Estimate Consistent w auto 08/19/19 17:18 Clumped Platelets Not Reportable 08/19/19 17:18 Plt Clumps, EDTA Not Reportable 08/19/19 17:18 Large Platelets Not Reportable 08/19/19 17:18 Giant Platelets Not Reportable 08/19/19 17:18 Platelet Satelliting Not Reportable 08/19/19 17:18 Plt Morphology Comment Not Reportable 08/19/19 17:18 RBC Morphology Not Reportable 08/19/19 17:18 Dimorphic RBCs Not Reportable 08/19/19 17:18 Polychromasia Rare 08/19/19 17:18 Hypochromasia Few 08/19/19 17:18 Poikilocytosis Not Reportable 08/19/19 17:18 Anisocytosis 1+ 08/19/19 17:18 Microcytosis Not Reportable 08/19/19 17:18 Macrocytosis Not Reportable 08/19/19 17:18 Spherocytes Not Reportable 08/19/19 17:18 Pappenheimer Bodies Not Reportable 08/19/19 17:18 Sickle Cells Not Reportable 08/19/19 17:18 Target Cells Not Reportable 08/19/19 17:18 Tear Drop Cells Rare 08/19/19 17:18 Ovalocytes Not Reportable 08/19/19 17:18 Helmet Cells Not Reportable 08/19/19 17:18 [place] Bodies Not Reportable 08/19/19 17:18 Excel Rings Not Reportable 08/19/19 17:18 [place] Cells Not Reportable 08/19/19 17:18 Bite Cells Not Reportable 08/19/19 17:18 Crenated Cell Not Reportable 08/19/19 17:18 Elliptocytes Not Reportable 08/19/19 17:18 Acanthocytes (Spur) Not Reportable 08/19/19 17:18 Rouleaux Not Reportable 08/19/19 17:18 Hemoglobin C Crystals Not Reportable 08/19/19 17:18 Schistocytes Not Reportable 08/19/19 17:18 Malaria parasites Not Reportable 08/19/19 17:18 Robert Bodies Not Reportable 08/19/19 17:18 Hem Pathologist Commnt No 08/19/19 17:18 PT 12.9 Sec. (12.2-14.9) 08/19/19 17:18 INR 0.96 (0.87-1.13) 08/19/19 17:18 APTT 31.5 Sec. (24.2-36.6) 08/19/19 17:18 D-Dimer 4302.71 ng/mlDDU (0-234) H 08/19/19 20:11 Sodium 129 mmol/L (137-145) L 08/19/19 17:18 Potassium 3.9 mmol/L (3.6-5.0) 08/19/19 17:18 Chloride 92.5 mmol/L (98-107) L 08/19/19 17:18 Carbon Dioxide 23 mmol/L (22-30) 08/19/19 17:18 Anion Gap 17 mmol/L 08/19/19 17:18 BUN 24 mg/dL (9-20) H 08/19/19 17:18 Creatinine 1.5 mg/dL (0.8-1.5) 08/19/19 17:18 Estimated GFR 46 ml/min 08/19/19 17:18 BUN/Creatinine Ratio 16 % 08/19/19 17:18 Glucose 152 mg/dL (75-100) H 08/19/19 17:18 Lactic Acid 2.50 mmol/L (0.7-2.0) H* 08/19/19 20:11 Calcium 8.3 mg/dL (8.4-10.2) L 08/19/19 17:18 Magnesium 1.80 mg/dL (1.7-2.3) 08/19/19 17:18 Total Bilirubin 0.70 mg/dL (0.1-1.2) 08/19/19 17:18 AST 35 units/L (5-40) 08/19/19 17:18 ALT 14 units/L (7-56) 08/19/19 17:18 Alkaline Phosphatase 132 units/L (35-129) H 08/19/19 17:18 Lactate Dehydrogenase 170 units/L (91-180) 08/19/19 17:18 Total Creatine Kinase 27 units/L (55-170) L 08/19/19 17:18 Total Protein 5.1 g/dL (6.3-8.2) L 08/19/19 17:18 Albumin 2.7 g/dL (3.9-5) L 08/19/19 17:18 Albumin/Globulin Ratio 1.1 % 08/19/19 17:18 TSH 2.660 mlU/mL (0.270-4.200) 08/19/19 17:18 Urine Color Yellow (Yellow) 08/19/19 20:20 Urine Turbidity Slightly-cloudy (Clear) 08/19/19 20:20 Urine pH 6.0 (5.0-7.0) 08/19/19 20:20 Ur Specific [place] 1.014 (1.003-1.030) 08/19/19 20:20 Urine Protein 30 mg/dl mg/dL (Negative) 08/19/19 20:20 Urine Glucose (UA) Neg mg/dL (Negative) 08/19/19 20:20 Urine Ketones Neg mg/dL (Negative) 08/19/19 20:20 Urine Blood Neg (Negative) 08/19/19 20:20 Urine Nitrite Neg (Negative) 08/19/19 20:20 Urine Bilirubin Neg (Negative) 08/19/19 20:20 Urine Urobilinogen < 2.0 mg/dL (<2.0) 08/19/19 20:20 Ur Leukocyte Esterase Neg (Negative) 08/19/19 20:20 Urine WBC (Auto) 11.0 /HPF (0.0-6.0) H 08/19/19 20:20 Urine RBC (Auto) 4.0 /HPF (0.0-6.0) 08/19/19 20:20 Urine Bacteria (Auto) 1+ /HPF (Negative) 08/19/19 20:20 Urine Mucus Few /HPF 08/19/19 20:20 Salicylates < 0.3 mg/dL (2.8-20.0) L 08/19/19 17:18 Acetaminophen < 5.0 ug/mL (10.0-30.0) L 08/19/19 17:18 Blood Type O POSITIVE 08/19/19 17:25 Antibody Screen Negative 08/19/19 17:25 Short CBC 08/19/19 08/19/19 Range/Units 17:18 20:11 WBC 7.7 (4.5-11.0) K/mm3 Hgb 9.3 L 9.4 L (11.8-15.2) gm/dl Hct 27.4 L 27.3 L (35.5-45.6) % Plt Count 198 (140-440) K/mm3 BMP 08/19/19 17:18 Sodium 129 L Potassium 3.9 Chloride 92.5 L Carbon Dioxide 23 BUN 24 H Creatinine 1.5 Glucose 152 H Calcium 8.3 L Cardiac Enzymes 08/19/19 Range/Units 17:18 Total Creatine Kinase 27 L (55-170) units/L Liver Function 08/19/19 Range/Units 17:18 Total Bilirubin 0.70 (0.1-1.2) mg/dL AST 35 (5-40) units/L ALT 14 (7-56) units/L Alkaline Phosphatase 132 H (35-129) units/L Albumin 2.7 L (3.9-5) g/dL Urine 08/19/19 Range/Units 20:20 Urine Color Yellow (Yellow) Urine pH 6.0 (5.0-7.0) Ur Specific Padroni 1.014 (1.003-1.030) Urine Protein 30 mg/dl (Negative) mg/dL Urine Glucose (UA) Neg (Negative) mg/dL Microbiology: Microbiology 08/19/19 17:18 Peripheral/Venous Blood Culture - Preliminary Culture in Progress 08/19/19 17:27 Peripheral/Venous Blood Culture - Preliminary Culture in Progress - Imaging and Cardiology EKG: report reviewed Chest x-ray: report reviewed CT scan - chest: report reviewed Imaging and Cardiology: CTA chest IMPRESSION: 1. No CT evidence for pulmonary embolism. 2. Areas of groundglass opacity in the left upper lobe and linear opacities in the lower lobes posteriorly may be from an infectious or inflammatory process. Three-month follow-up CT is recommended to confirm resolution. 3. Tiny bilateral pleural effusions. 4. Splenomegaly and widespread lymphadenopathy are suggestive of an underlying lymphoproliferative disorder. 5. Anasarca. Chest x-ray IMPRESSION: Mild bibasilar subsegmental atelectasis, greater on the left. Assessment and Plan Advance Directives: Yes (Full code) VTE prophylaxis?: Chemical Plan of care discussed with patient/family: Yes - Patient Problems (1) Atrial flutter with rapid ventricular response Current Visit: Yes Status: Acute Plan to address problem: Patient on Cardizem drip P.o. metoprolol and oral Cardizem initiated Cardiology consult requested (2) Hypotension Current Visit: Yes Status: Acute Plan to address problem: IV normal saline at 75 cc/h for 12 hours (3) Suspected 2019 novel coronavirus infection Current Visit: Yes Status: Acute Plan to address problem: Covid-19 form filled out (4) Bilateral pneumonia Current Visit: Yes Status: Acute Qualifiers: Pneumonia type: due to unspecified organism Plan to address problem: Patient started on IV Rocephin and IV Zithromax Patient isolated COVID 19 form filled out (5) Hyponatremia Current Visit: Yes Status: Acute (6) Malnutrition Current Visit: Yes Status: Chronic Qualifiers: Malnutrition type: protein-calorie malnutrition Protein-calorie malnutrition severity: moderate Qualified Code(s): E44.0 - Moderate protein- calorie malnutrition Plan to address problem: Dietitian consult requested (7) Elevated lactic acid level Current Visit: Yes Status: Acute Plan to address problem: Possible sepsis Initiated on IV Rocephin and Zithromax (8) Coronary artery disease Current Visit: Yes Status: Chronic Qualifiers: Coronary Disease-Associated Artery/Lesion type: [place] artery [place] vs. transplanted heart: [place] heart Plan to address problem: Continue Plavix (9) T2DM (type 2 diabetes mellitus) Current Visit: Yes Status: Chronic Qualifiers: Diabetes mellitus intermediate card tender insulin use: without intermediate card tender use Plan to address problem: Continue Tradjenta and insulin coverage Check hemoglobin A1c (10) Glaucoma Current Visit: Yes Status: Chronic Qualifiers: Glaucoma type: unspecified Plan to address problem: Continue travoprost and timolol (11) GERD (gastroesophageal reflux disease) Current Visit: Yes Status: Chronic Qualifiers: Esophagitis presence: without esophagitis Qualified Code(s): K21.9 - Skye ro-esophageal reflux disease without esophagitis Plan to address problem: Continue Protonix (12) Peripheral neuropathy Current Visit: Yes Status: Chronic Qualifiers: Peripheral neuropathy type: polyneuropathy, unspecified Qualified Code(s): G62.9 - Polyneuropathy, unspecified Plan to address problem: Continue gabapentin (13) DVT prophylaxis Current Visit: Yes Status: Acute Plan to address problem: On heparin and GI prophylaxis
[2019-08-20] MEDS ORDERED: METOCLOPRAMIDE 10 MG/2 ML INJ IV PRN (00:04)
[2019-08-20] MEDS ORDERED: oxyCODONE /ACETAMINOPHEN 5-325MG TAB PO PRN (00:04)
[2019-08-20] MEDS ORDERED: ONDANSETRON 4 MG/2 ML INJ IV PRN (00:04)
[2019-08-20] MEDS ORDERED: HYDROmorphone 1 MG/1 ML INJ IV PRN (00:04)
[2019-08-20] MEDS ORDERED: ACETAMINOPHEN 325 MG TAB PO PRN (00:04)
[2019-08-20] MEDS ORDERED: SODIUM CHLORIDE 0.9% 1000 ML 1,000 ML IV SCH (00:45)
[2019-08-20] MEDS ORDERED: SODIUM CHLORIDE 0.9% 1000 ML 1,000 ML ONE ×3 (01:43→06:00)
[2019-08-20] MEDS ORDERED: SODIUM CHLORIDE 0.9% 1000 ML 1,000 ML IV ONE (01:45)
[2019-08-20] MEDS ORDERED: HEPARIN 10,000 UNITS/10 ML VIAL ONE (03:10)
[2019-08-20] MEDS ORDERED: GABAPENTIN 300 MG CAP ONE ×2 (03:16→13:08)
[2019-08-20] MEDS ORDERED: ACETAMINOPHEN 325 MG TAB ONE (03:16)
[2019-08-20] MEDS: GABAPENTIN 300 MG CAP PO SCH ×3 (03:20→22:03)
[2019-08-20] MEDS: METOPROLOL TARTRATE 50 MG TAB PO SCH ×3 (03:40→22:04)
[2019-08-20] MEDS ORDERED: SODIUM CHLORIDE 0.9% 500 ML 500 ML ONE (05:11)
[2019-08-20 05:37] LABS: Calcium 7.6 mg/dL (8.4-10.2)
[2019-08-20] MEDS ORDERED: AZITHROMYCIN 500 MG in SODIUM CHLORIDE 0.9% 250ML 250 ML IV SCH (10:00)
--- NOTE | 2019-08-20 11:34 | Progress Note ---
Assessment and Plan Assessment and plan: Patient is a 74 yo man with a history of glaucoma, CHF, type 2 DM, GERD, anemia, peripheral neuropathy and He reports a history of "gallbladder cancer", diagnosed at [place] a few months ago, he is currently receiving radiation therapy sent from care home for low-grade fever, tachycardia and hypotension. He was found to be AFib with RVR and treated with IV Cardizem. Patient was found to have bilateral patchy pneumonia; therefore, COVID-[address] Flaherty, ED physician. * CTA chest IMPRESSION: 1. No CT evidence for pulmonary embolism. 2. Areas of groundglass opacity in the left upper lobe and linear opacities in the lower lobes posteriorly may be from an infectious or inflammatory process. Three- month follow-up CT is recommended to confirm resolution. 3. Tiny bilateral pleural effusions. 4. Splenomegaly and widespread lymphadenopathy are suggestive of an underlying lymphoproliferative disorder. 5. Anasarca. Atrial fibrillation with RVR: try to wean off IV Cardizem, IV heparin drip, Cardiology consulted Hypotension: adjust IV Cardizem, treat with IVFs Bilateral pneumonia: treat with ABX, COVID survey sent COVID-19 suspect: await [place] Dept [facility] regarding testing Functional quadriplegia/bed bound per patient: conservative/preventive measures Bilateral foot pressure ulcers, poa: wound care Hyponatremia hypoOsm: treat with IVFs H/O Gallbladder Cancer Type 2 DM with complications, non-healing foot ulcers: treat with ssi, accuchecks and ADA AOCD: monitor CBC DVT ppx: on IV heparin CCT 33 minutes History Interval history: Patient was seen and examined. Follow-up on current diagnosis of AFib. Overnight uneventful as no events directly reported to me. Patient denies any chest pain, shortness breath, nausea/vomiting or severe headaches. Imaging, nursing note, chart, labs and old chart reviewed. Discussed with patient. Hospitalist Physical - Physical exam Narrative exam: Gen: chronically disable appearing, ill appearing, NAD, Awake, Alert, Orientated HEENT: NCAT, EOMI, PERRL, OP Clear Neck: supple, no adenopathy, no thyromegaly, no JVD CVS/Heart: irregular irregular normal S1S2, pulses present bilaterally Chest/Lungs: diminished bs bilateral, Symmetrical chest expansion, good air entry bilaterally, right chest wall IV line GI/Abdomen: soft, NTND, good bowel sounds, no guarding or rebound /Bladder: no suprapubic tenderness, no CVA or paraspinal tenderness Extermity/Skin: ble leg edema, foot ulcers bilateral MSK: FROM x 4 Neuro: CN 2-12 grossly intact, no new focal deficits, foot drop Psych: calm - Constitutional Vitals: Temp Pulse Resp BP Pulse Ox 99.4 F 123 H 20 100/61 100 08/20/19 08:00 08/20/19 09:00 08/20/19 09:00 08/20/19 09:00 08/20/19 09:00 General appearance: Present: no acute distress, well-nourished CHENCHO score - Chencho Score Age > 65: (1) Yes Aspirin use within the Past 7 Days: (1) Yes 3 or more CAD Risk Factors: (1) Yes 2 or more Angina events in past 24 hrs: (0) No Known CAD with more than 50% Stenosis: (0) No Elevated Cardiac Markers: (0) No ST Deviation Greater than 0.5mm: (0) No CHENCHO Score: 3 Results - Labs CBC & Chem 7: 08/19/19 20:11 08/20/19 04:08 Labs: Laboratory Last Values WBC 7.7 K/mm3 (4.5-11.0) 08/19/19 17:18 RBC 2.99 M/mm3 (3.65-5.03) L 08/19/19 17:18 Hgb 9.4 gm/dl (11.8-15.2) L 08/19/19 20:11 Hct 27.3 % (35.5-45.6) L 08/19/19 20:11 MCV 92 fl (84-94) 08/19/19 17:18 MCH 31 pg (28-32) 08/19/19 17:18 MCHC 34 % (32-34) 08/19/19 17:18 RDW 14.3 % (13.2-15.2) 08/19/19 17:18 Plt Count 198 K/mm3 (140-440) 08/19/19 17:18 Add Manual Diff Complete 08/19/19 17:18 Total Counted 100 08/19/19 17:18 Seg Neuts % (Manual) 86.0 % (40.0-70.0) H 08/19/19 17:18 Band Neutrophils % 0 % 08/19/19 17:18 Lymphocytes % (Manual) 11.0 % (13.4-35.0) L 08/19/19 17:18 Reactive Lymphs % (Man) 0 % 08/19/19 17:18 Monocytes % (Manual) 3.0 % (0.0-7.3) 08/19/19 17:18 Eosinophils % (Manual) 0 % (0.0-4.3) 08/19/19 17:18 Basophils % (Manual) 0 % (0.0-1.8) 08/19/19 17:18 Metamyelocytes % 0 % 08/19/19 17:18 Myelocytes % 0 % 08/19/19 17:18 Promyelocytes % 0 % 08/19/19 17:18 Blast Cells % 0 % 08/19/19 17:18 Nucleated RBC % Not Reportable 08/19/19 17:18 Seg Neutrophils # Man 6.6 K/mm3 (1.8-7.7) 08/19/19 17:18 Band Neutrophils # 0.0 K/mm3 08/19/19 17:18 Lymphocytes # (Manual) 0.8 K/mm3 (1.2-5.4) L 08/19/19 17:18 Abs React Lymphs (Man) 0.0 K/mm3 08/19/19 17:18 Monocytes # (Manual) 0.2 K/mm3 (0.0-0.8) 08/19/19 17:18 Eosinophils # (Manual) 0.0 K/mm3 (0.0-0.4) 08/19/19 17:18 Basophils # (Manual) 0.0 K/mm3 (0.0-0.1) 08/19/19 17:18 Metamyelocytes # 0.0 K/mm3 08/19/19 17:18 Myelocytes # 0.0 K/mm3 08/19/19 17:18 Promyelocytes # 0.0 K/mm3 08/19/19 17:18 Blast Cells # 0.0 K/mm3 08/19/19 17:18 WBC Morphology Not Reportable 08/19/19 17:18 Hypersegmented Neuts Not Reportable 08/19/19 17:18 Hyposegmented Neuts Not Reportable 08/19/19 17:18 Hypogranular Neuts Not Reportable 08/19/19 17:18 Smudge Cells Not Reportable 08/19/19 17:18 Toxic Granulation Not Reportable 08/19/19 17:18 Toxic Vacuolation Not Reportable 08/19/19 17:18 Dohle Bodies Not Reportable 08/19/19 17:18 Pelger-Huet Anomaly Not Reportable 08/19/19 17:18 Josue Rods Not Reportable 08/19/19 17:18 Platelet Estimate Consistent w auto 08/19/19 17:18 Clumped Platelets Not Reportable 08/19/19 17:18 Plt Clumps, EDTA Not Reportable 08/19/19 17:18 Large Platelets Not Reportable 08/19/19 17:18 Giant Platelets Not Reportable 08/19/19 17:18 Platelet Satelliting Not Reportable 08/19/19 17:18 Plt Morphology Comment Not Reportable 08/19/19 17:18 RBC Morphology Not Reportable 08/19/19 17:18 Dimorphic RBCs Not Reportable 08/19/19 17:18 Polychromasia Rare 08/19/19 17:18 Hypochromasia Few 08/19/19 17:18 Poikilocytosis Not Reportable 08/19/19 17:18 Anisocytosis 1+ 08/19/19 17:18 Microcytosis Not Reportable 08/19/19 17:18 Macrocytosis Not Reportable 08/19/19 17:18 Spherocytes Not Reportable 08/19/19 17:18 Pappenheimer Bodies Not Reportable 08/19/19 17:18 Sickle Cells Not Reportable 08/19/19 17:18 Target Cells Not Reportable 08/19/19 17:18 Tear Drop Cells Rare 08/19/19 17:18 Ovalocytes Not Reportable 08/19/19 17:18 Helmet Cells Not Reportable 08/19/19 17:18 Murguia-Ottosen Bodies Not Reportable 08/19/19 17:18 Union Rings Not Reportable 08/19/19 17:18 Norman Cells Not Reportable 08/19/19 17:18 Bite Cells Not Reportable 08/19/19 17:18 Crenated Cell Not Reportable 08/19/19 17:18 Elliptocytes Not Reportable 08/19/19 17:18 Acanthocytes (Spur) Not Reportable 08/19/19 17:18 Rouleaux Not Reportable 08/19/19 17:18 Hemoglobin C Crystals Not Reportable 08/19/19 17:18 Schistocytes Not Reportable 08/19/19 17:18 Malaria parasites Not Reportable 08/19/19 17:18 Robert Bodies Not Reportable 08/19/19 17:18 Hem Pathologist Commnt No 08/19/19 17:18 PT 12.9 Sec. (12.2-14.9) 08/19/19 17:18 INR 0.96 (0.87-1.13) 08/19/19 17:18 APTT 31.5 Sec. (24.2-36.6) 08/19/19 17:18 D-Dimer 4302.71 ng/mlDDU (0-234) H 08/19/19 20:11 Heparin Anti-Xa Level < 0.10 U.I./ml (0.3-0.7) L 08/20/19 01:14 Sodium 133 mmol/L (137-145) L 08/20/19 04:08 Potassium 4.0 mmol/L (3.6-5.0) 08/20/19 04:08 Chloride 97.0 mmol/L (98-107) L 08/20/19 04:08 Carbon Dioxide 24 mmol/L (22-30) 08/20/19 04:08 Anion Gap 16 mmol/L 08/20/19 04:08 BUN 24 mg/dL (9-20) H 08/20/19 04:08 Creatinine 1.4 mg/dL (0.8-1.5) 08/20/19 04:08 Estimated GFR 50 ml/min 08/20/19 04:08 BUN/Creatinine Ratio 17 % 08/20/19 04:08 Glucose 90 mg/dL (75-100) 08/20/19 04:08 POC Glucose 101 (70-105) 08/20/19 11:21 Hemoglobin A1c 3.0 % (4-6) L 08/20/19 04:08 Lactic Acid 1.20 mmol/L (0.7-2.0) 08/20/19 01:14 Calcium 7.6 mg/dL (8.4-10.2) L 08/20/19 04:08 Magnesium 1.80 mg/dL (1.7-2.3) 08/19/19 17:18 Total Bilirubin 0.70 mg/dL (0.1-1.2) 08/19/19 17:18 AST 35 units/L (5-40) 08/19/19 17:18 ALT 14 units/L (7-56) 08/19/19 17:18 Alkaline Phosphatase 132 units/L (35-129) H 08/19/19 17:18 Lactate Dehydrogenase 170 units/L (91-180) 08/19/19 17:18 Total Creatine Kinase 27 units/L (55-170) L 08/19/19 17:18 Total Protein 5.1 g/dL (6.3-8.2) L 08/19/19 17:18 Albumin 2.7 g/dL (3.9-5) L 08/19/19 17:18 Albumin/Globulin Ratio 1.1 % 08/19/19 17:18 TSH 2.660 mlU/mL (0.270-4.200) 08/19/19 17:18 Urine Color Yellow (Yellow) 08/19/19 20:20 Urine Turbidity Slightly-cloudy (Clear) 08/19/19 20:20 Urine pH 6.0 (5.0-7.0) 08/19/19 20:20 Ur Specific Harrison 1.014 (1.003-1.030) 08/19/19 20:20 Urine Protein 30 mg/dl mg/dL (Negative) 08/19/19 20:20 Urine Glucose (UA) Neg mg/dL (Negative) 08/19/19 20:20 Urine Ketones Neg mg/dL (Negative) 08/19/19 20:20 Urine Blood Neg (Negative) 08/19/19 20:20 Urine Nitrite Neg (Negative) 08/19/19 20:20 Urine Bilirubin Neg (Negative) 08/19/19 20:20 Urine Urobilinogen < 2.0 mg/dL (<2.0) 08/19/19 20:20 Ur Leukocyte Esterase Neg (Negative) 08/19/19 20:20 Urine WBC (Auto) 11.0 /HPF (0.0-6.0) H 08/19/19 20:20 Urine RBC (Auto) 4.0 /HPF (0.0-6.0) 08/19/19 20:20 Urine Bacteria (Auto) 1+ /HPF (Negative) 08/19/19 20:20 Urine Mucus Few /HPF 08/19/19 20:20 Salicylates < 0.3 mg/dL (2.8-20.0) L 08/19/19 17:18 Acetaminophen < 5.0 ug/mL (10.0-30.0) L 08/19/19 17:18 Blood Type O POSITIVE 08/19/19 17:25 Antibody Screen Negative 08/19/19 17:25 Microbiology: Microbiology 08/19/19 17:27 Peripheral/Venous Blood Culture - Preliminary 08/19/19 20:20 Urine,Clean Catch Urine Culture - Preliminary 08/19/19 17:18 Peripheral/Venous Blood Culture - Preliminary Culture in Progress Active Medications - Current Medications Current Medications: Generic Name Dose Route Start Last Admin Trade Name Freq PRN Reason Stop Dose Admin Acetaminophen 650 mg 08/20/19 00:04 Tylenol PO Q4H PRN Pain MILD(1-3)/Fever >100.5/TIJERINA Ascorbic Acid 500 mg 08/20/19 10:00 Vitamin C PO QDAY [facility] Cetirizine HCl 10 mg 08/20/19 10:00 Cetirizine PO QDAY [facility] Clopidogrel Bisulfate 75 mg 08/20/19 10:00 Plavix PO QDAY [facility] Cyanocobalamin 500 mcg 08/20/19 10:00 Vitamin B-12 PO DAILY [facility] Diltiazem HCl 120 mg 08/20/19 10:00 Cardizem Cd PO QDAY [facility] Diphenhydramine HCl 25 mg 08/19/19 23:47 Benadryl PO Q6H PRN Itching Docusate Sodium 100 mg 08/19/19 23:47 Colace PO BID PRN Constipation Ferrous Sulfate 325 mg 08/20/19 10:00 Feosol PO QDAY [facility] Folic Acid 1 mg 08/20/19 10:00 Folvite PO QDAY [facility] Furosemide 40 mg 08/20/19 10:00 Lasix PO QDAY [facility] Gabapentin 300 mg 08/19/19 23:45 08/20/19 03:20 Gabapentin PO 300 mg BID LUIS FELIPE Administration Hydromorphone HCl 0.5 mg 08/20/19 00:04 Dilaudid IV Q3H PRN Pain , Severe (7-10) Heparin Sodium/Sodium Chloride 25,000 unit in 500 mls @ 23 mls/hr 08/19/19 19:00 08/20/19 03:19 Heparin/ 0.45% Nacl-25,000 Unit/500 Ml IV 1,385 units/hr TITR LUIS FELIPE 27.7 mls/hr Titration Protocol 1,150 UNITS/HR Diltiazem HCl 100 mg in 100 mls @ 5 mls/hr 08/19/19 21:00 08/19/19 20:51 Cardizem/D5w 100mg/100ml IV 5 mg/hr TITR LUIS FELIPE 5 mls/hr Administration Protocol 5 MG/HR Azithromycin 500 mg/ Sodium 250 mls @ 250 mls/hr 08/20/19 10:00 Chloride IV Q24HR LUIS FELIPE Protocol Ceftriaxone Sodium 2 gm in 100 mls @ 200 mls/hr 08/20/19 10:00 Rocephin/Ns 2 Gm/100 Ml IV Q24HR LUIS FELIPE Protocol Sodium Chloride 1,000 mls @ 75 mls/hr 08/20/19 00:45 08/20/19 06:14 Nacl 0.9% 1000 Ml IV 08/20/19 12:00 75 mls/hr DIRECT LUIS EFLIPE Administration Insulin Human Lispro 0 unit 08/20/19 07:30 Humalog SUB-Q ACHS [facility] Protocol Latanoprost 1 drops 08/20/19 22:00 Latanoprost 0.005% OU QHS LUIS FELIPE Linagliptin 5 mg 08/20/19 10:00 Tradjenta PO QDAY [facility] Metoclopramide HCl 5 mg 08/20/19 00:04 Reglan IV Q6H PRN Nausea And Vomiting Metoprolol Tartrate 50 mg 08/20/19 01:00 08/20/19 03:40 Metoprolol PO Not Given BID [facility] Miscellaneous Medication 1 each 08/19/19 23:45 08/20/19 03:40 Dorzolamide/Timolol/Pf [Dorzolamide-Timolol 2%-0.5%] OP Not Given BID [facility] Ondansetron HCl 4 mg 08/20/19 00:04 Zofran IV Q8H PRN Nausea And Vomiting Oxycodone/Acetaminophen 1 tab 08/20/19 00:04 Percocet 5/325 PO Q6H PRN Pain, Moderate (4-6) Pantoprazole Sodium 40 mg 08/20/19 10:00 Protonix PO QDAY LUIS FELIPE Sodium Chloride 10 ml 08/20/19 10:00 Sodium Chloride Flush Syringe 10 Ml IV BID LUIS FELIPE Sodium Chloride 10 ml 08/20/19 00:04 Sodium Chloride Flush Syringe 10 Ml IV PRN PRN LINE FLUSH
--- NOTE | 2019-08-20 11:58 | Consultation ---
History of Present Illness Consult date: 08/20/19 Consult reason: atrial fibrillation History of present illness: This is a 74-year old male who resides in a skilled nursing who was sent to the hospital with hypotension. On presentation he was noted with a low temperature of 99.3. Chest x-ray reports bilateral opacities. He is being tested for suspected COVID-19. An ECG revealed atrial flutter with 2:1 AV conduction. This was treated with intravenous Diltiazem. TSH of 2.66. A cardiac consultation has been requested for management of atrial flutter. Medications and Allergies Allergies Allergy/AdvReac Type Severity Reaction Status Date / Time NSAIDS (Non-Steroidal Allergy Unknown Verified 08/19/19 16:47 Anti-Inflamma Home Medications Medication Instructions Recorded Confirmed Last Taken Type Ascorbic Acid [Vitamin C] 500 mg PO QDAY 08/19/19 08/19/19 Unknown History Bismuth Tribromoph/Petrolatum 1 each TP QDAY 08/19/19 08/19/19 Unknown History [Xeroform 5"X9" Gauze Strip] Clopidogrel [Plavix] 75 mg PO QDAY 08/19/19 08/19/19 Unknown History Clotrimazole 1% [Lotrimin] 1 applic TP BID 08/19/19 08/19/19 Unknown History Cyanocobalamin [Vitamin B-12] 500 mcg PO DAILY 08/19/19 08/19/19 Unknown History Docusate Sodium [Colace] 100 mg PO BID PRN 08/19/19 08/19/19 Unknown History Dorzolamide/Timolol/Pf 1 each OP BID 08/19/19 08/19/19 Unknown History [Dorzolamide-Timolol 2%-0.5%] Ferrous Sulfate [Feosol] 325 mg PO QDAY 08/19/19 08/19/19 Unknown History Folic Acid [Folvite] 1 mg PO QDAY 08/19/19 08/19/19 Unknown History Furosemide [Lasix TAB] 40 mg PO QDAY 08/19/19 08/19/19 Unknown History Gabapentin [Neurontin] 300 mg PO BID 08/19/19 08/19/19 Unknown History Lanolin /Mo/W.pet/[place] (Nf) 30 applic TP TID 08/19/19 08/19/19 Unknown History [EUCERIN (nf)] Linagliptin [Tradjenta] 5 mg PO QDAY 08/19/19 08/19/19 Unknown History Loratadine [Claritin] 10 mg PO QDAY 08/19/19 08/19/19 Unknown History Oxycodone HCl [roxiCODONE] 30 mg PO Q6HR 08/19/19 08/19/19 Unknown History Pantoprazole [Protonix] 40 mg PO QDAY 08/19/19 08/19/19 Unknown History Travoprost 5 ml OP QHS 08/19/19 08/19/19 Unknown History diphenhydrAMINE [Benadryl CAP] 25 mg PO Q6HR PRN 08/19/19 08/19/19 Unknown History Active Meds: Active Medications Acetaminophen (Tylenol) 650 mg PO Q4H PRN PRN Reason: Pain MILD(1-3)/Fever >100.5/TIJERINA Ascorbic Acid (Vitamin C) 500 mg PO QDAY [facility] Cetirizine HCl (Cetirizine) 10 mg PO QDAY [facility] Clopidogrel Bisulfate (Plavix) 75 mg PO QDAY [facility] Cyanocobalamin (Vitamin B-12) 500 mcg PO DAILY [facility] Diltiazem HCl (Cardizem Cd) 120 mg PO QDAY [facility] Diphenhydramine HCl (Benadryl) 25 mg PO Q6H PRN PRN Reason: Itching Docusate Sodium (Colace) 100 mg PO BID PRN PRN Reason: Constipation Ferrous Sulfate (Feosol) 325 mg PO QDAY [facility] Folic Acid (Folvite) 1 mg PO QDAY [facility] Furosemide (Lasix) 40 mg PO QDAY [facility] Gabapentin (Gabapentin) 300 mg PO BID [facility] Last Admin: 08/20/19 03:20 Dose: 300 mg Documented by: Hydromorphone HCl (Dilaudid) 0.5 mg IV Q3H PRN PRN Reason: Pain , Severe (7-10) Heparin Sodium/Sodium Chloride (Heparin/ 0.45% Nacl-25,000 Unit/500 Ml) 25,000 unit in 500 mls @ 23 mls/hr IV TITR LUIS FELIPE; Protocol Last Titration: 08/20/19 03:19 Dose: 1,385 units/hr, 27.7 mls/hr Documented by: Diltiazem HCl (Cardizem/D5w 100mg/100ml) 100 mg in 100 mls @ 5 mls/hr IV TITR LUIS FELIPE; Protocol Last Admin: 08/19/19 20:51 Dose: 5 mg/hr, 5 mls/hr Documented by: Azithromycin 500 mg/ Sodium (Chloride) 250 mls @ 250 mls/hr IV Q24HR LUIS FELIPE; Protocol Ceftriaxone Sodium (Rocephin/Ns 2 Gm/100 Ml) 2 gm in 100 mls @ 200 mls/hr IV Q24HR LUIS FELIPE; Protocol Sodium Chloride (Nacl 0.9% 1000 Ml) 1,000 mls @ 75 mls/hr IV DIRECT LUIS FELIPE Stop: 08/20/19 12:00 Last Admin: 08/20/19 06:14 Dose: 75 mls/hr Documented by: Insulin Human Lispro (Humalog) 0 unit SUB-Q ACHS [facility]; Protocol Latanoprost (Latanoprost 0.005%) 1 drops OU QHS [facility] Linagliptin (Tradjenta) 5 mg PO QDAY [facility] Metoclopramide HCl (Reglan) 5 mg IV Q6H PRN PRN Reason: Nausea And Vomiting Metoprolol Tartrate (Metoprolol) 50 mg PO BID [facility] Last Admin: 08/20/19 03:40 Dose: Not Given Documented by: Miscellaneous Medication (Dorzolamide/Timolol/Pf [Dorzolamide-Timolol 2%-0.5%]) 1 each OP BID [facility] Last Admin: 08/20/19 03:40 Dose: Not Given Documented by: Ondansetron HCl (Zofran) 4 mg IV Q8H PRN PRN Reason: Nausea And Vomiting Oxycodone/Acetaminophen (Percocet 5/325) 1 tab PO Q6H PRN PRN Reason: Pain, Moderate (4-6) Pantoprazole Sodium (Protonix) 40 mg PO QDAY [facility] Sodium Chloride (Sodium Chloride Flush Syringe 10 Ml) 10 ml IV BID [facility] Sodium Chloride (Sodium Chloride Flush Syringe 10 Ml) 10 ml IV PRN PRN PRN Reason: LINE FLUSH Physical Examination Vital Signs BP 94/66 08/19/19 16:41 General appearance: no acute distress Cardiac: Positive: irregularly irregular Results 08/19/19 20:11 08/20/19 04:08 Cardiac Enzymes 08/19/19 08/19/19 Range/Units 17:18 17:18 AST 35 (5-40) units/L Lactate Dehydrogenase 170 (91-180) units/L Coagulation 08/19/19 Range/Units 17:18 PT 12.9 (12.2-14.9) Sec. INR 0.96 (0.87-1.13) APTT 31.5 (24.2-36.6) Sec. CBC 08/19/19 08/19/19 Range/Units 17:18 20:11 WBC 7.7 (4.5-11.0) K/mm3 RBC 2.99 L (3.65-5.03) M/mm3 Hgb 9.3 L 9.4 L (11.8-15.2) gm/dl Hct 27.4 L 27.3 L (35.5-45.6) % Plt Count 198 (140-440) K/mm3 Comprehensive Metabolic Panel 08/19/19 08/20/19 Range/Units 17:18 04:08 Sodium 129 L 133 L (137-145) mmol/L Potassium 3.9 4.0 (3.6-5.0) mmol/L Chloride 92.5 L 97.0 L (98-107) mmol/L Carbon Dioxide 23 24 (22-30) mmol/L BUN 24 H 24 H (9-20) mg/dL Creatinine 1.5 1.4 (0.8-1.5) mg/dL Glucose 152 H 90 (75-100) mg/dL Calcium 8.3 L 7.6 L (8.4-10.2) mg/dL AST 35 (5-40) units/L ALT 14 (7-56) units/L Alkaline Phosphatase 132 H (35-129) units/L Total Protein 5.1 L (6.3-8.2) g/dL Albumin 2.7 L (3.9-5) g/dL Assessment and Plan - Patient Problems (1) Atrial flutter with rapid ventricular response Current Visit: Yes Status: Acute
[2019-08-20] MEDS: INSULIN LISPRO 100 UNIT/ML SUB-Q SCH ×4 (12:38→23:31)
[2019-08-20] MEDS ORDERED: CLOPIDOGREL 75 MG TAB ONE (13:07)
[2019-08-20] MEDS ORDERED: FUROSEMIDE 20 MG TAB ONE (13:07)
[2019-08-20] MEDS ORDERED: PANTOPRAZOLE 40 MG TAB PO ONE (13:07)
[2019-08-20] MEDS ORDERED: cefTRIAXone/NS 2 GM/100 ML 2 GM/100 ML BAG IV ONE (13:07)
[2019-08-20] MEDS: CLOPIDOGREL 75 MG TAB PO SCH (13:23)
[2019-08-20] MEDS: PANTOPRAZOLE 40 MG TAB PO SCH (13:23)
[2019-08-20] MEDS: cefTRIAXone/NS 2 GM/100 ML 2 GM/100 ML BAG IV SCH (13:24)
[2019-08-20] MEDS: HEPARIN/ 0.45% NACL DRIP 25,000 UNIT/500 ML BAG IV SCH (15:45)
[2019-08-20] MEDS: FERROUS SULFATE 325 MG TAB PO SCH (15:55)
[2019-08-20] MEDS: FOLIC ACID 1 MG TAB PO SCH (15:55)
[2019-08-20] MEDS: LINAGLIPTIN 5 MG TAB PO SCH (15:56)
[2019-08-20] MEDS: CYANOCOBALAMIN (VIT B-12) 1000 MCG TAB PO SCH (15:56)
[2019-08-20] MEDS: ASCORBIC ACID 500 MG TAB PO SCH (15:57)
[2019-08-20] MEDS: CETIRIZINE 10 MG TAB PO SCH (16:24)
[2019-08-20] MEDS: FUROSEMIDE 40 MG TAB PO SCH (16:25)
[2019-08-20] MEDS: AZITHROMYCIN 500 MG in SODIUM CHLORIDE 0.9% 250ML 250 ML IV SCH (16:26)
[2019-08-20] MEDS: dilTIAZem CD 120 MG CAP PO SCH (17:43)
[2019-08-21] MEDS: LATANOPROST 0.005% OPHTH SOLN 2.5 ML OU SCH ×2 (01:56→23:15)
[2019-08-21 05:16] LABS: Hematocrit 25.5 % (35.5-45.6); Hemoglobin 8.6 gm/dl (11.8-15.2)
[2019-08-21 06:07] LABS: BUN/Creatinine Ratio 17; Blood Urea Nitrogen 19 mg/dL (9-20); Hemolysis Index 4
[2019-08-21] MEDS: HEPARIN/ 0.45% NACL DRIP 25,000 UNIT/500 ML BAG IV SCH (06:25)
[2019-08-21] MEDS: INSULIN LISPRO 100 UNIT/ML SUB-Q SCH ×4 (07:30→23:16)
[2019-08-21] MEDS: CETIRIZINE 10 MG TAB PO SCH (09:38)
[2019-08-21] MEDS: FOLIC ACID 1 MG TAB PO SCH (09:39)
[2019-08-21] MEDS: FERROUS SULFATE 325 MG TAB PO SCH (09:39)
[2019-08-21] MEDS: GABAPENTIN 300 MG CAP PO SCH ×2 (09:39→23:15)
[2019-08-21] MEDS: FUROSEMIDE 40 MG TAB PO SCH (09:40)
[2019-08-21] MEDS: CLOPIDOGREL 75 MG TAB PO SCH (09:40)
[2019-08-21] MEDS: cefTRIAXone/NS 2 GM/100 ML 2 GM/100 ML BAG IV SCH (09:40)
[2019-08-21] MEDS: PANTOPRAZOLE 40 MG TAB PO SCH (09:40)
[2019-08-21] MEDS: LINAGLIPTIN 5 MG TAB PO SCH (09:41)
[2019-08-21] MEDS: CYANOCOBALAMIN (VIT B-12) 1000 MCG TAB PO SCH (09:41)
[2019-08-21] MEDS: ASCORBIC ACID 500 MG TAB PO SCH (09:42)
[2019-08-21] MEDS: METOPROLOL TARTRATE 50 MG TAB PO SCH ×2 (10:00→23:15)
--- NOTE | 2019-08-21 11:53 | Progress Note ---
Assessment and Plan - Patient Problems (1) Atrial flutter with rapid ventricular response Current Visit: Yes Status: Acute Plan to address problem: Persistent Atrial flutter on metoprolol for rate control We will add digoxin for optimal rate control of atrial flutter that persists. Echocardiogram with be done for LVEF assessment. Subjective Date of service: 08/21/19 Interval history: Aflutter with a rapid ventricular rate on telemetry. Latest blood pressure 96/50. Mildly febrile this morning. Objective Vital Signs Temp Pulse Resp BP Pulse Ox 08/21/19 06:09 99.6 F 122 H 20 96/53 98 08/20/19 23:02 99.9 F H 55 L 20 95/55 98 08/20/19 22:04 124 H 116/71 08/20/19 16:15 98.3 F 125 H 22 99/52 97 08/20/19 14:00 132 H 26 H 110/64 08/20/19 13:30 26 H 100/59 98 08/20/19 13:00 20 101/58 96 08/20/19 12:30 20 91/55 100 08/20/19 12:00 22 95/60 100 - Physical Examination Cardiac: Positive: irregularly irregular - Labs and Meds CBC 08/21/19 Range/Units 04:28 Hgb 8.6 L (11.8-15.2) gm/dl Hct 25.5 L (35.5-45.6) % Plt Count 183 (140-440) K/mm3 Comprehensive Metabolic Panel 08/21/19 Range/Units 04:28 Sodium 135 L (137-145) mmol/L Potassium 3.4 L (3.6-5.0) mmol/L Chloride 100.8 (98-107) mmol/L Carbon Dioxide 20 L (22-30) mmol/L BUN 19 (9-20) mg/dL Creatinine 1.1 (0.8-1.5) mg/dL Glucose 95 (75-100) mg/dL Calcium 8.0 L (8.4-10.2) mg/dL - Imaging and Cardiology EKG: report reviewed
[2019-08-21] MEDS ORDERED: DIGOXIN 0.5 MG/2 ML INJ IV ONE (14:00)
[2019-08-21] MEDS: dilTIAZem CD 120 MG CAP PO SCH (14:52)
--- NOTE | 2019-08-21 16:37 | Progress Note ---
Assessment and Plan Assessment and plan: Patient is a 74 yo man with a history of glaucoma, CHF, type 2 DM, GERD, anemia, peripheral neuropathy and He reports a history of "gallbladder cancer", diagnosed at [facility] a few months ago, he is currently receiving radiation therapy sent from [facility] for low-grade fever, tachycardia and hypotension. He was found to be AFib with RVR and treated with IV Cardizem. Patient was found to have bilateral patchy pneumonia; therefore, COVID-[address] Flaherty, ED physician. * CTA chest IMPRESSION: 1. No CT evidence for pulmonary embolism. 2. Areas of groundglass opacity in the left upper lobe and linear opacities in the lower lobes posteriorly may be from an infectious or inflammatory process. Three- month follow-up CT is recommended to confirm resolution. 3. Tiny bilateral pleural effusions. 4. Splenomegaly and widespread lymphadenopathy are suggestive of an underlying lymphoproliferative disorder. 5. Anasarca. Atrial fibrillation with RVR: try to wean off IV Cardizem, IV heparin drip, Cardiology consulted Hypotension: adjust IV Cardizem, treat with IVFs Bilateral pneumonia: treat with ABX, COVID-19 suspect: [place] Dept of [facility] denies request for testing Functional quadriplegia/bed bound per patient: conservative/preventive measures Bilateral foot pressure ulcers, poa: wound care Hyponatremia hypoOsm: treat with IVFs H/O Gallbladder Cancer Type 2 DM with complications, non-healing foot ulcers: treat with ssi, accuchecks and ADA AOCD: monitor CBC DVT ppx: on IV heparin 08/21/19: Patient still weak and doesn't feel well. So, I spoke with Pablo Causey and Survey sent but testing not approved by [facility]. Patient is growing GPC clusters 2/4 bottles, will start IV vancomycin, consult ID, continue contact isolation and remove droplet isolated for COVID19?. Now, why GPC if not contaminated. Patient does have indwelling central line placed at outside facility. Await ID consult ?line infection History Interval history: Patient was seen and examined. Follow-up on current diagnosis of AFib. Overnight uneventful as no events directly reported to me. Patient denies any chest pain, shortness breath, nausea/vomiting or severe headaches. Imaging, nursing note, chart, labs and old chart reviewed. Discussed with patient. Hospitalist Physical - Physical exam Narrative exam: Gen: chronically disable appearing, ill appearing, NAD, Awake, Alert, Orientated HEENT: NCAT, EOMI, PERRL, OP Clear Neck: supple, no adenopathy, no thyromegaly, no JVD CVS/Heart: irregular irregular normal S1S2, pulses present bilaterally Chest/Lungs: diminished bs bilateral, Symmetrical chest expansion, good air entry bilaterally, right chest wall IV line GI/Abdomen: soft, NTND, good bowel sounds, no guarding or rebound /Bladder: no suprapubic tenderness, no CVA or paraspinal tenderness Extermity/Skin: ble leg edema, foot ulcers bilateral MSK: FROM x 4 Neuro: CN 2-12 grossly intact, no new focal deficits, foot drop Psych: calm - Constitutional Vitals: Temp Pulse Resp BP Pulse Ox 98.6 F 130 H 24 95/63 98 08/21/19 13:25 08/21/19 14:37 08/21/19 13:25 08/21/19 13:25 08/21/19 13:25 General appearance: Present: no acute distress CHENCHO score - Chencho Score Age > 65: (1) Yes Aspirin use within the Past 7 Days: (1) Yes 3 or more CAD Risk Factors: (1) Yes 2 or more Angina events in past 24 hrs: (0) No Known CAD with more than 50% Stenosis: (0) No Elevated Cardiac Markers: (0) No ST Deviation Greater than 0.5mm: (0) No CHENCHO Score: 3 Results - Labs CBC & Chem 7: 08/21/19 04:28 08/21/19 04:28 Labs: Laboratory Last Values WBC 7.7 K/mm3 (4.5-11.0) 08/19/19 17:18 RBC 2.99 M/mm3 (3.65-5.03) L 08/19/19 17:18 Hgb 8.6 gm/dl (11.8-15.2) L 08/21/19 04:28 Hct 25.5 % (35.5-45.6) L 08/21/19 04:28 MCV 92 fl (84-94) 08/19/19 17:18 MCH 31 pg (28-32) 08/19/19 17:18 MCHC 34 % (32-34) 08/19/19 17:18 RDW 14.3 % (13.2-15.2) 08/19/19 17:18 Plt Count 183 K/mm3 (140-440) 08/21/19 04:28 Add Manual Diff Complete 08/19/19 17:18 Total Counted 100 08/19/19 17:18 Seg Neuts % (Manual) 86.0 % (40.0-70.0) H 08/19/19 17:18 Band Neutrophils % 0 % 08/19/19 17:18 Lymphocytes % (Manual) 11.0 % (13.4-35.0) L 08/19/19 17:18 Reactive Lymphs % (Man) 0 % 08/19/19 17:18 Monocytes % (Manual) 3.0 % (0.0-7.3) 08/19/19 17:18 Eosinophils % (Manual) 0 % (0.0-4.3) 08/19/19 17:18 Basophils % (Manual) 0 % (0.0-1.8) 08/19/19 17:18 Metamyelocytes % 0 % 08/19/19 17:18 Myelocytes % 0 % 08/19/19 17:18 Promyelocytes % 0 % 08/19/19 17:18 Blast Cells % 0 % 08/19/19 17:18 Nucleated RBC % Not Reportable 08/19/19 17:18 Seg Neutrophils # Man 6.6 K/mm3 (1.8-7.7) 08/19/19 17:18 Band Neutrophils # 0.0 K/mm3 08/19/19 17:18 Lymphocytes # (Manual) 0.8 K/mm3 (1.2-5.4) L 08/19/19 17:18 Abs React Lymphs (Man) 0.0 K/mm3 08/19/19 17:18 Monocytes # (Manual) 0.2 K/mm3 (0.0-0.8) 08/19/19 17:18 Eosinophils # (Manual) 0.0 K/mm3 (0.0-0.4) 08/19/19 17:18 Basophils # (Manual) 0.0 K/mm3 (0.0-0.1) 08/19/19 17:18 Metamyelocytes # 0.0 K/mm3 08/19/19 17:18 Myelocytes # 0.0 K/mm3 08/19/19 17:18 Promyelocytes # 0.0 K/mm3 08/19/19 17:18 Blast Cells # 0.0 K/mm3 08/19/19 17:18 WBC Morphology Not Reportable 08/19/19 17:18 Hypersegmented Neuts Not Reportable 08/19/19 17:18 Hyposegmented Neuts Not Reportable 08/19/19 17:18 Hypogranular Neuts Not Reportable 08/19/19 17:18 Smudge Cells Not Reportable 08/19/19 17:18 Toxic Granulation Not Reportable 08/19/19 17:18 Toxic Vacuolation Not Reportable 08/19/19 17:18 Dohle Bodies Not Reportable 08/19/19 17:18 Pelger-Huet Anomaly Not Reportable 08/19/19 17:18 Josue Rods Not Reportable 08/19/19 17:18 Platelet Estimate Consistent w auto 08/19/19 17:18 Clumped Platelets Not Reportable 08/19/19 17:18 Plt Clumps, EDTA Not Reportable 08/19/19 17:18 Large Platelets Not Reportable 08/19/19 17:18 Giant Platelets Not Reportable 08/19/19 17:18 Platelet Satelliting Not Reportable 08/19/19 17:18 Plt Morphology Comment Not Reportable 08/19/19 17:18 RBC Morphology Not Reportable 08/19/19 17:18 Dimorphic RBCs Not Reportable 08/19/19 17:18 Polychromasia Rare 08/19/19 17:18 Hypochromasia Few 08/19/19 17:18 Poikilocytosis Not Reportable 08/19/19 17:18 Anisocytosis 1+ 08/19/19 17:18 Microcytosis Not Reportable 08/19/19 17:18 Macrocytosis Not Reportable 08/19/19 17:18 Spherocytes Not Reportable 08/19/19 17:18 Pappenheimer Bodies Not Reportable 08/19/19 17:18 Sickle Cells Not Reportable 08/19/19 17:18 Target Cells Not Reportable 08/19/19 17:18 Tear Drop Cells Rare 08/19/19 17:18 Ovalocytes Not Reportable 08/19/19 17:18 Helmet Cells Not Reportable 08/19/19 17:18 [place] Bodies Not Reportable 08/19/19 17:18 [place] Rings Not Reportable 08/19/19 17:18 Oden Cells Not Reportable 08/19/19 17:18 Bite Cells Not Reportable 08/19/19 17:18 Crenated Cell Not Reportable 08/19/19 17:18 Elliptocytes Not Reportable 08/19/19 17:18 Acanthocytes (Spur) Not Reportable 08/19/19 17:18 Rouleaux Not Reportable 08/19/19 17:18 Hemoglobin C Crystals Not Reportable 08/19/19 17:18 Schistocytes Not Reportable 08/19/19 17:18 Malaria parasites Not Reportable 08/19/19 17:18 Robert Bodies Not Reportable 08/19/19 17:18 Hem Pathologist Commnt No 08/19/19 17:18 PT 12.9 Sec. (12.2-14.9) 08/19/19 17:18 INR 0.96 (0.87-1.13) 08/19/19 17:18 APTT 31.5 Sec. (24.2-36.6) 08/19/19 17:18 D-Dimer 4302.71 ng/mlDDU (0-234) H 08/19/19 20:11 Heparin Anti-Xa Level 0.25 U.I./ml (0.3-0.7) L 08/21/19 09:17 Sodium 135 mmol/L (137-145) L 08/21/19 04:28 Potassium 3.4 mmol/L (3.6-5.0) L 08/21/19 04:28 Chloride 100.8 mmol/L (98-107) 08/21/19 04:28 Carbon Dioxide 20 mmol/L (22-30) L 08/21/19 04:28 Anion Gap 18 mmol/L 08/21/19 04:28 BUN 19 mg/dL (9-20) 08/21/19 04:28 Creatinine 1.1 mg/dL (0.8-1.5) 08/21/19 04:28 Estimated GFR > 60 ml/min 08/21/19 04:28 BUN/Creatinine Ratio 17 % 08/21/19 04:28 Glucose 95 mg/dL (75-100) 08/21/19 04:28 POC Glucose 143 (70-105) H 08/21/19 13:41 Hemoglobin A1c 3.0 % (4-6) L 08/20/19 04:08 Lactic Acid 1.20 mmol/L (0.7-2.0) 08/20/19 01:14 Calcium 8.0 mg/dL (8.4-10.2) L 08/21/19 04:28 Magnesium 1.80 mg/dL (1.7-2.3) 08/19/19 17:18 Total Bilirubin 0.70 mg/dL (0.1-1.2) 08/19/19 17:18 AST 35 units/L (5-40) 08/19/19 17:18 ALT 14 units/L (7-56) 08/19/19 17:18 Alkaline Phosphatase 132 units/L (35-129) H 08/19/19 17:18 Lactate Dehydrogenase 170 units/L (91-180) 08/19/19 17:18 Total Creatine Kinase 27 units/L (55-170) L 08/19/19 17:18 Total Protein 5.1 g/dL (6.3-8.2) L 08/19/19 17:18 Albumin 2.7 g/dL (3.9-5) L 08/19/19 17:18 Albumin/Globulin Ratio 1.1 % 08/19/19 17:18 TSH 2.660 mlU/mL (0.270-4.200) 08/19/19 17:18 Urine Color Yellow (Yellow) 08/19/19 20:20 Urine Turbidity Slightly-cloudy (Clear) 08/19/19 20:20 Urine pH 6.0 (5.0-7.0) 08/19/19 20:20 Ur Specific [place] 1.014 (1.003-1.030) 08/19/19 20:20 Urine Protein 30 mg/dl mg/dL (Negative) 08/19/19 20:20 Urine Glucose (UA) Neg mg/dL (Negative) 08/19/19 20:20 Urine Ketones Neg mg/dL (Negative) 08/19/19 20:20 Urine Blood Neg (Negative) 08/19/19 20:20 Urine Nitrite Neg (Negative) 08/19/19 20:20 Urine Bilirubin Neg (Negative) 08/19/19 20:20 Urine Urobilinogen < 2.0 mg/dL (<2.0) 08/19/19 20:20 Ur Leukocyte Esterase Neg (Negative) 08/19/19 20:20 Urine WBC (Auto) 11.0 /HPF (0.0-6.0) H 08/19/19 20:20 Urine RBC (Auto) 4.0 /HPF (0.0-6.0) 08/19/19 20:20 Urine Bacteria (Auto) 1+ /HPF (Negative) 08/19/19 20:20 Urine Mucus Few /HPF 08/19/19 20:20 Salicylates < 0.3 mg/dL (2.8-20.0) L 08/19/19 17:18 Acetaminophen < 5.0 ug/mL (10.0-30.0) L 08/19/19 17:18 Influenza A (Rapid) Negative (Negative) 08/19/19 Unknown Influenza B (Rapid) Negative (Negative) 08/19/19 Unknown Blood Type O POSITIVE 08/19/19 17:25 Antibody Screen Negative 08/19/19 17:25 Microbiology: Microbiology 08/19/19 17:27 Peripheral/Venous Blood Culture - Preliminary Staphylococcus Aureus 08/19/19 20:20 Urine,Clean Catch Urine Culture - Final 08/19/19 17:18 Peripheral/Venous Blood Culture - Preliminary NO GROWTH AFTER 24 HOURS Rojas/IV: Voiding Method Condom Catheter IV Catheter Type [Right] PICC Line IV Catheter Type [Left INT / Saline Lock External Jugular] Active Medications - Current Medications Current Medications: Generic Name Dose Route Start Last Admin Trade Name Freq PRN Reason Stop Dose Admin Acetaminophen 650 mg 08/20/19 00:04 Tylenol PO Q4H PRN Pain MILD(1-3)/Fever >100.5/TIJERINA Ascorbic Acid 500 mg 08/20/19 10:00 08/21/19 09:42 Vitamin C PO 500 mg QDAY LUIS FELIPE Administration Cetirizine HCl 10 mg 08/20/19 10:00 08/21/19 09:38 Cetirizine PO 10 mg QDAY LUIS FELIPE Administration Clopidogrel Bisulfate 75 mg 08/20/19 10:00 08/21/19 09:40 Plavix PO 75 mg QDAY LUIS FELIPE Administration Cyanocobalamin 500 mcg 08/20/19 10:00 08/21/19 09:41 Vitamin B-12 PO 500 mcg DAILY LUIS FELIPE Administration Digoxin 0.125 mg 08/22/19 17:00 Lanoxin PO DAILY@1700 LUIS FELIPE Diphenhydramine HCl 25 mg 08/19/19 23:47 Benadryl PO Q6H PRN Itching Docusate Sodium 100 mg 08/19/19 23:47 Colace PO BID PRN Constipation Ferrous Sulfate 325 mg 08/20/19 10:00 08/21/19 09:39 Feosol PO 325 mg QDAY LUIS FELIPE Administration Folic Acid 1 mg 08/20/19 10:00 08/21/19 09:39 Folvite PO 1 mg QDAY LUIS FELIPE Administration Furosemide 40 mg 08/20/19 10:00 08/21/19 09:40 Lasix PO 40 mg QDAY LUIS FELIPE Administration Gabapentin 300 mg 08/19/19 23:45 08/21/19 09:39 Gabapentin PO 300 mg BID LUIS FELIPE Administration Hydromorphone HCl 0.5 mg 08/20/19 00:04 Dilaudid IV Q3H PRN Pain , Severe (7-10) Diltiazem HCl 100 mg in 100 mls @ 5 mls/hr 08/19/19 21:00 08/19/19 20:51 Cardizem/D5w 100mg/100ml IV 5 mg/hr TITR LUIS FELIPE 5 mls/hr Administration Protocol 5 MG/HR Ceftriaxone Sodium 2 gm in 100 mls @ 200 mls/hr 08/20/19 10:00 08/21/19 09:40 Rocephin/Ns 2 Gm/100 Ml IV 200 mls/hr Q24HR LUIS FELIPE Administration Protocol Azithromycin 500 mg/ Sodium 250 mls @ 250 mls/hr 08/20/19 17:00 08/20/19 16:26 Chloride IV 250 mls/hr Q24H LUIS FELIPE Administration Protocol Insulin Human Lispro 0 unit 08/20/19 07:30 08/21/19 11:30 Humalog SUB-Q Not Given ACHS COUNT INCLUDES THE [facility] Protocol Latanoprost 1 drops 08/20/19 22:00 08/21/19 01:56 Latanoprost 0.005% OU 1 drops QHS LUIS FELIPE Administration Linagliptin 5 mg 08/20/19 10:00 08/21/19 09:41 Tradjenta PO 5 mg QDAY LUIS FELIPE Administration Metoclopramide HCl 5 mg 08/20/19 00:04 Reglan IV Q6H PRN Nausea And Vomiting Metoprolol Tartrate 50 mg 08/20/19 01:00 08/21/19 10:00 Metoprolol PO Not Given BID COUNT INCLUDES THE [facility] Miscellaneous Medication 1 each 08/19/19 23:45 08/20/19 03:40 Dorzolamide/Timolol/Pf [Dorzolamide-Timolol 2%-0.5%] OP Not Given BID LUIS FELIPE Ondansetron HCl 4 mg 08/20/19 00:04 Zofran IV Q8H PRN Nausea And Vomiting Oxycodone/Acetaminophen 1 tab 08/20/19 00:04 Percocet 5/325 PO Q6H PRN Pain, Moderate (4-6) Pantoprazole Sodium 40 mg 08/20/19 10:00 08/21/19 09:40 Protonix PO 40 mg QDAY LUIS FELIPE Administration Sodium Chloride 10 ml 08/20/19 10:00 08/21/19 09:41 Sodium Chloride Flush Syringe 10 Ml IV 10 ml BID LUIS FELIPE Administration Sodium Chloride 10 ml 08/20/19 00:04 Sodium Chloride Flush Syringe 10 Ml IV PRN PRN LINE FLUSH
[2019-08-21] MEDS ORDERED: VANCOMYCIN 1,750 MG in SODIUM CHLORIDE 0.9% 500 ML 500 ML IV ONE (17:00)
[2019-08-21] MEDS ORDERED: VANCOMYCIN PHARMACY TO DOSE IV SCH (17:00)
[2019-08-21] MEDS: AZITHROMYCIN 500 MG in SODIUM CHLORIDE 0.9% 250ML 250 ML IV SCH (17:50)
[2019-08-22] MEDS: INSULIN LISPRO 100 UNIT/ML SUB-Q SCH ×4 (08:26→21:51)
[2019-08-22] MEDS: cefTRIAXone/NS 2 GM/100 ML 2 GM/100 ML BAG IV SCH (09:35)
[2019-08-22] MEDS: LINAGLIPTIN 5 MG TAB PO SCH (09:36)
[2019-08-22] MEDS: PANTOPRAZOLE 40 MG TAB PO SCH (09:37)
[2019-08-22] MEDS: dilTIAZem CD 120 MG CAP PO SCH (09:37)
[2019-08-22] MEDS: CYANOCOBALAMIN (VIT B-12) 1000 MCG TAB PO SCH (09:37)
[2019-08-22] MEDS: FUROSEMIDE 40 MG TAB PO SCH (09:38)
[2019-08-22] MEDS: FERROUS SULFATE 325 MG TAB PO SCH (09:38)
[2019-08-22] MEDS: FOLIC ACID 1 MG TAB PO SCH (09:38)
[2019-08-22] MEDS: CLOPIDOGREL 75 MG TAB PO SCH (09:38)
[2019-08-22] MEDS: GABAPENTIN 300 MG CAP PO SCH ×2 (09:38→21:49)
[2019-08-22] MEDS: ASCORBIC ACID 500 MG TAB PO SCH (09:38)
[2019-08-22] MEDS: CETIRIZINE 10 MG TAB PO SCH (09:38)
[2019-08-22] MEDS: METOPROLOL TARTRATE 50 MG TAB PO SCH ×2 (09:39→21:50)
[2019-08-22] MEDS ORDERED: VANCOMYCIN 1,250 MG in SODIUM CHLORIDE 0.9% 250ML 250 ML IV SCH (10:00)
--- NOTE | 2019-08-22 14:47 | Progress Note ---
Assessment and Plan Assessment and plan: Patient is a 74 yo man with a history of glaucoma, CHF, type 2 DM, GERD, anemia, peripheral neuropathy and He reports a history of "gallbladder cancer", diagnosed at [facility] a few months ago, he is currently receiving radiation therapy sent from residential for low-grade fever, tachycardia and hypotension. He was found to be AFib with RVR and treated with IV Cardizem. Patient was found to have bilateral patchy pneumonia; therefore, COVID-[address] Flaherty, ED physician. * CTA chest IMPRESSION: 1. No CT evidence for pulmonary embolism. 2. Areas of groundglass opacity in the left upper lobe and linear opacities in the lower lobes posteriorly may be from an infectious or inflammatory process. Three- month follow-up CT is recommended to confirm resolution. 3. Tiny bilateral pleural effusions. 4. Splenomegaly and widespread lymphadenopathy are suggestive of an underlying lymphoproliferative disorder. 5. Anasarca. Atrial fibrillation with RVR: try to wean off IV Cardizem, IV heparin drip, Cardiology consulted Hypotension: adjust IV Cardizem, treat with IVFs Bilateral pneumonia: treat with ABX, COVID-19 suspect: [place] Dept of [facility] denied request for testing Functional quadriplegia/bed bound per patient: conservative/preventive measures Bilateral foot pressure ulcers, poa: wound care Hyponatremia hypoOsm: treat with IVFs H/O Gallbladder Cancer Type 2 DM with complications, non-healing foot ulcers: treat with ssi, accuchecks and ADA AOCD: monitor CBC DVT ppx: on IV heparin 08/21/19: Patient still weak and doesn't feel well. So, I spoke with Pablo Causey and Survey sent but testing not approved by [facility]. Patient is growing GPC clusters 2/4 bottles, will start IV vancomycin, consult ID, continue contact isolation and remove droplet isolated for COVID19?. Now, why GPC if not contaminated. Patient does have indwelling central line placed at outside facility. Await ID consult ?line infection 08/22/19: MSSA bacteremia, will remove isolation and transfer off COVID floor, d/w Dr. Garcia regarding Line infection, he will evaluate. Await procalcitonin/LDH/CRP/d-dimer/ferritin. History Interval history: Patient was seen and examined. Follow-up on current diagnosis of AFib, pna. Overnight uneventful as no events directly reported to me. Patient denies any chest pain, shortness breath, nausea/vomiting or severe headaches. Imaging, nursing note, chart, labs and old chart reviewed. Discussed with patient. Hospitalist Physical - Physical exam Narrative exam: Gen: chronically disable appearing, ill appearing, NAD, Awake, Alert, Orientated HEENT: NCAT, EOMI, PERRL, OP Clear Neck: supple, no adenopathy, no thyromegaly, no JVD CVS/Heart: irregular irregular normal S1S2, pulses present bilaterally Chest/Lungs: diminished bs bilateral, Symmetrical chest expansion, good air entry bilaterally, right chest wall IV line GI/Abdomen: soft, NTND, good bowel sounds, no guarding or rebound /Bladder: no suprapubic tenderness, no CVA or paraspinal tenderness Extermity/Skin: ble leg edema, foot ulcers bilateral MSK: FROM x 4 Neuro: CN 2-12 grossly intact, no new focal deficits, foot drop Psych: calm - Constitutional Vitals: Temp Pulse Resp BP Pulse Ox 98.5 F 94 H 19 100/58 96 08/22/19 05:43 08/22/19 05:43 08/22/19 05:43 08/22/19 05:43 08/22/19 05:43 General appearance: Present: no acute distress CHENCHO score - Chencho Score Age > 65: (1) Yes Aspirin use within the Past 7 Days: (1) Yes 3 or more CAD Risk Factors: (1) Yes 2 or more Angina events in past 24 hrs: (0) No Known CAD with more than 50% Stenosis: (0) No Elevated Cardiac Markers: (0) No ST Deviation Greater than 0.5mm: (0) No CHENCHO Score: 3 Results - Labs CBC & Chem 7: 08/21/19 04:28 08/21/19 04:28 Labs: Laboratory Last Values WBC 7.7 K/mm3 (4.5-11.0) 08/19/19 17:18 RBC 2.99 M/mm3 (3.65-5.03) L 08/19/19 17:18 Hgb 8.6 gm/dl (11.8-15.2) L 08/21/19 04:28 Hct 25.5 % (35.5-45.6) L 08/21/19 04:28 MCV 92 fl (84-94) 08/19/19 17:18 MCH 31 pg (28-32) 08/19/19 17:18 MCHC 34 % (32-34) 08/19/19 17:18 RDW 14.3 % (13.2-15.2) 08/19/19 17:18 Plt Count 183 K/mm3 (140-440) 08/21/19 04:28 Add Manual Diff Complete 08/19/19 17:18 Total Counted 100 08/19/19 17:18 Seg Neuts % (Manual) 86.0 % (40.0-70.0) H 08/19/19 17:18 Band Neutrophils % 0 % 08/19/19 17:18 Lymphocytes % (Manual) 11.0 % (13.4-35.0) L 08/19/19 17:18 Reactive Lymphs % (Man) 0 % 08/19/19 17:18 Monocytes % (Manual) 3.0 % (0.0-7.3) 08/19/19 17:18 Eosinophils % (Manual) 0 % (0.0-4.3) 08/19/19 17:18 Basophils % (Manual) 0 % (0.0-1.8) 08/19/19 17:18 Metamyelocytes % 0 % 08/19/19 17:18 Myelocytes % 0 % 08/19/19 17:18 Promyelocytes % 0 % 08/19/19 17:18 Blast Cells % 0 % 08/19/19 17:18 Nucleated RBC % Not Reportable 08/19/19 17:18 Seg Neutrophils # Man 6.6 K/mm3 (1.8-7.7) 08/19/19 17:18 Band Neutrophils # 0.0 K/mm3 08/19/19 17:18 Lymphocytes # (Manual) 0.8 K/mm3 (1.2-5.4) L 08/19/19 17:18 Abs React Lymphs (Man) 0.0 K/mm3 08/19/19 17:18 Monocytes # (Manual) 0.2 K/mm3 (0.0-0.8) 08/19/19 17:18 Eosinophils # (Manual) 0.0 K/mm3 (0.0-0.4) 08/19/19 17:18 Basophils # (Manual) 0.0 K/mm3 (0.0-0.1) 08/19/19 17:18 Metamyelocytes # 0.0 K/mm3 08/19/19 17:18 Myelocytes # 0.0 K/mm3 08/19/19 17:18 Promyelocytes # 0.0 K/mm3 08/19/19 17:18 Blast Cells # 0.0 K/mm3 08/19/19 17:18 WBC Morphology Not Reportable 08/19/19 17:18 Hypersegmented Neuts Not Reportable 08/19/19 17:18 Hyposegmented Neuts Not Reportable 08/19/19 17:18 Hypogranular Neuts Not Reportable 08/19/19 17:18 Smudge Cells Not Reportable 08/19/19 17:18 Toxic Granulation Not Reportable 08/19/19 17:18 Toxic Vacuolation Not Reportable 08/19/19 17:18 Dohle Bodies Not Reportable 08/19/19 17:18 Pelger-Huet Anomaly Not Reportable 08/19/19 17:18 Josue Rods Not Reportable 08/19/19 17:18 Platelet Estimate Consistent w auto 08/19/19 17:18 Clumped Platelets Not Reportable 08/19/19 17:18 Plt Clumps, EDTA Not Reportable 08/19/19 17:18 Large Platelets Not Reportable 08/19/19 17:18 Giant Platelets Not Reportable 08/19/19 17:18 Platelet Satelliting Not Reportable 08/19/19 17:18 Plt Morphology Comment Not Reportable 08/19/19 17:18 RBC Morphology Not Reportable 08/19/19 17:18 Dimorphic RBCs Not Reportable 08/19/19 17:18 Polychromasia Rare 08/19/19 17:18 Hypochromasia Few 08/19/19 17:18 Poikilocytosis Not Reportable 08/19/19 17:18 Anisocytosis 1+ 08/19/19 17:18 Microcytosis Not Reportable 08/19/19 17:18 Macrocytosis Not Reportable 08/19/19 17:18 Spherocytes Not Reportable 08/19/19 17:18 Pappenheimer Bodies Not Reportable 08/19/19 17:18 Sickle Cells Not Reportable 08/19/19 17:18 Target Cells Not Reportable 08/19/19 17:18 Tear Drop Cells Rare 08/19/19 17:18 Ovalocytes Not Reportable 08/19/19 17:18 Helmet Cells Not Reportable 08/19/19 17:18 Murguia-Orin Bodies Not Reportable 08/19/19 17:18 [place] Rings Not Reportable 08/19/19 17:18 Kim Cells Not Reportable 08/19/19 17:18 Bite Cells Not Reportable 08/19/19 17:18 Crenated Cell Not Reportable 08/19/19 17:18 Elliptocytes Not Reportable 08/19/19 17:18 Acanthocytes (Spur) Not Reportable 08/19/19 17:18 Rouleaux Not Reportable 08/19/19 17:18 Hemoglobin C Crystals Not Reportable 08/19/19 17:18 Schistocytes Not Reportable 08/19/19 17:18 Malaria parasites Not Reportable 08/19/19 17:18 Robert Bodies Not Reportable 08/19/19 17:18 Hem Pathologist Commnt No 08/19/19 17:18 PT 12.9 Sec. (12.2-14.9) 08/19/19 17:18 INR 0.96 (0.87-1.13) 08/19/19 17:18 APTT 31.5 Sec. (24.2-36.6) 08/19/19 17:18 D-Dimer 4302.71 ng/mlDDU (0-234) H 08/19/19 20:11 Heparin Anti-Xa Level 0.25 U.I./ml (0.3-0.7) L 08/21/19 09:17 Sodium 135 mmol/L (137-145) L 08/21/19 04:28 Potassium 3.4 mmol/L (3.6-5.0) L 08/21/19 04:28 Chloride 100.8 mmol/L (98-107) 08/21/19 04:28 Carbon Dioxide 20 mmol/L (22-30) L 08/21/19 04:28 Anion Gap 18 mmol/L 08/21/19 04:28 BUN 19 mg/dL (9-20) 08/21/19 04:28 Creatinine 1.1 mg/dL (0.8-1.5) 08/21/19 04:28 Estimated GFR > 60 ml/min 08/21/19 04:28 BUN/Creatinine Ratio 17 % 08/21/19 04:28 Glucose 95 mg/dL (75-100) 08/21/19 04:28 POC Glucose 123 (70-105) H 08/22/19 11:28 Hemoglobin A1c 3.0 % (4-6) L 08/20/19 04:08 Lactic Acid 1.20 mmol/L (0.7-2.0) 08/20/19 01:14 Calcium 8.0 mg/dL (8.4-10.2) L 08/21/19 04:28 Magnesium 1.80 mg/dL (1.7-2.3) 08/19/19 17:18 Total Bilirubin 0.70 mg/dL (0.1-1.2) 08/19/19 17:18 AST 35 units/L (5-40) 08/19/19 17:18 ALT 14 units/L (7-56) 08/19/19 17:18 Alkaline Phosphatase 132 units/L (35-129) H 08/19/19 17:18 Lactate Dehydrogenase 170 units/L (91-180) 08/19/19 17:18 Total Creatine Kinase 27 units/L (55-170) L 08/19/19 17:18 Total Protein 5.1 g/dL (6.3-8.2) L 08/19/19 17:18 Albumin 2.7 g/dL (3.9-5) L 08/19/19 17:18 Albumin/Globulin Ratio 1.1 % 08/19/19 17:18 TSH 2.660 mlU/mL (0.270-4.200) 08/19/19 17:18 Urine Color Yellow (Yellow) 08/19/19 20:20 Urine Turbidity Slightly-cloudy (Clear) 08/19/19 20:20 Urine pH 6.0 (5.0-7.0) 08/19/19 20:20 Ur Specific Climax 1.014 (1.003-1.030) 08/19/19 20:20 Urine Protein 30 mg/dl mg/dL (Negative) 08/19/19 20:20 Urine Glucose (UA) Neg mg/dL (Negative) 08/19/19 20:20 Urine Ketones Neg mg/dL (Negative) 08/19/19 20:20 Urine Blood Neg (Negative) 08/19/19 20:20 Urine Nitrite Neg (Negative) 08/19/19 20:20 Urine Bilirubin Neg (Negative) 08/19/19 20:20 Urine Urobilinogen < 2.0 mg/dL (<2.0) 08/19/19 20:20 Ur Leukocyte Esterase Neg (Negative) 08/19/19 20:20 Urine WBC (Auto) 11.0 /HPF (0.0-6.0) H 08/19/19 20:20 Urine RBC (Auto) 4.0 /HPF (0.0-6.0) 08/19/19 20:20 Urine Bacteria (Auto) 1+ /HPF (Negative) 08/19/19 20:20 Urine Mucus Few /HPF 08/19/19 20:20 Salicylates < 0.3 mg/dL (2.8-20.0) L 08/19/19 17:18 Acetaminophen < 5.0 ug/mL (10.0-30.0) L 08/19/19 17:18 Influenza A (Rapid) Negative (Negative) 08/19/19 Unknown Influenza B (Rapid) Negative (Negative) 08/19/19 Unknown Blood Type O POSITIVE 08/19/19 17:25 Antibody Screen Negative 08/19/19 17:25 Microbiology: Microbiology 08/19/19 17:27 Peripheral/Venous Blood Culture - Preliminary Staphylococcus Aureus 08/19/19 17:18 Peripheral/Venous Blood Culture - Preliminary NO GROWTH AFTER 48 HOURS 08/19/19 20:20 Urine,Clean Catch Urine Culture - Final - Diagnostic Impressions Diagnostic Impressions: Echocardiogram 08/20/19 12:50 Transthoracic Echocardiogram Indication: Hypotension BP: 95/63 HR: 126 Conclusions *Rhythm is atrial flutter with RVR. *The left ventricular chamber size is normal. *Global left ventricular systolic function is at the lower limits of normal. *The estimated ejection fraction is 45-50%. *The left atrium is moderately dilated. *The right ventricular global systolic function is mildly reduced. *The right atrium is mildly dilated. *Mild aortic cusp sclerosis is present. Findings Procedure Info: The study quality is good. Left Ventricle: The left ventricular chamber size is normal. Global left ventricular systolic function is at the lower limits of normal. The estimated ejection fraction is 45-50%. Left Atrium: The left atrium is moderately dilated. Right Ventricle: The right ventricular cavity size is normal. The right ventricular global systolic function is mildly reduced. Right Atrium: The right atrium is mildly dilated. There is evidence of an atrial septal aneurysm. Aortic Valve: The aortic valve is trileaflet. Mild aortic cusp sclerosis is present. Mitral Valve: The mitral valve leaflets appear normal. Tricuspid Valve: There is mild tricuspid regurgitation. Pulmonic Valve: The pulmonic valve appears normal. Pericardium: There is no pericardial effusion. Aorta: The aortic root is not well visualized. Venous: The inferior vena cava is not visualized. Measurements Volumes/Mass Name Value Normal Range LA ESV SP 4CH (A/L) 47.14 ml - LA ESV SP 2CH (A/L) 75.33 ml - LA ESV BP (A/L) 61.28 ml - LA ESV BP (A/L) index 30.79 ml/m2 - LA ESV SP 4CH (MOD) 40.25 ml - LA ESV SP 2CH (MOD) 73.68 ml - LA ESV BP (MOD) 55.51 ml - LA ESV BP (MOD) index 27.89 ml/m2 - Diastolic/Systolic Function Name Value Normal Range MV E-wave Vmax 0.55 m/sec - MV deceleration time 151.78 msec - MV A-wave Vmax 0.96 m/sec - MV E:A ratio 0.57 ratio - Aortic Valve Name Value Normal Range AV Vmax 1.12 m/sec - AV VTI 14.55 cm - AV peak gradient 5 mmHg - AV mean gradient 2.85 mmHg - LVOT Vmax 0.82 m/sec - LVOT VTI 13.36 cm - LVOT peak gradient 2.67 mmHg - LVOT mean gradient 1.26 mmHg - Mitral Valve Name Value Normal Range MR Vmax 4.16 m/sec - Tricuspid Valve Name Value Normal Range TR Vmax 2.57 m/sec - TR peak gradient 26 mmHg - RAP 8 mmHg - RVSP 34 mmHg - Pulmonic Valve/Qp:Qs Name Value Normal Range PV Vmax 0.84 m/sec - PV peak gradient 2.84 mmHg - PV acceleration time 60.89 msec - Rojas/IV: Voiding Method Urinal IV Catheter Type [Right] PICC Line IV Catheter Type [Left INT / Saline Lock External Jugular] Active Medications - Current Medications Current Medications: Generic Name Dose Route Start Last Admin Trade Name Freq PRN Reason Stop Dose Admin Acetaminophen 650 mg 08/20/19 00:04 Tylenol PO Q4H PRN Pain MILD(1-3)/Fever >100.5/TIJERINA Ascorbic Acid 500 mg 08/20/19 10:00 08/22/19 09:38 Vitamin C PO 500 mg QDAY LUIS FELIPE Administration Azithromycin 500 mg 08/23/19 10:00 Zithromax PO QDAY LUIS FELIPE Cetirizine HCl 10 mg 08/20/19 10:00 08/22/19 09:38 Cetirizine PO 10 mg QDAY LUIS FELIPE Administration Clopidogrel Bisulfate 75 mg 08/20/19 10:00 08/22/19 09:38 Plavix PO 75 mg QDAY LUIS FELIPE Administration Cyanocobalamin 500 mcg 08/20/19 10:00 08/22/19 09:37 Vitamin B-12 PO 500 mcg DAILY LUIS FELIPE Administration Digoxin 0.125 mg 08/22/19 17:00 Lanoxin PO DAILY@1700 LUIS FELIPE Diphenhydramine HCl 25 mg 08/19/19 23:47 Benadryl PO Q6H PRN Itching Docusate Sodium 100 mg 08/19/19 23:47 Colace PO BID PRN Constipation Ferrous Sulfate 325 mg 08/20/19 10:00 08/22/19 09:38 Feosol PO 325 mg QDAY LUIS FELIPE Administration Folic Acid 1 mg 08/20/19 10:00 08/22/19 09:38 Folvite PO 1 mg QDAY LUIS FELIPE Administration Furosemide 40 mg 08/20/19 10:00 08/22/19 09:38 Lasix PO 40 mg QDAY LUIS FELIPE Administration Gabapentin 300 mg 08/19/19 23:45 08/22/19 09:38 Gabapentin PO 300 mg BID LUIS FELIPE Administration Hydromorphone HCl 0.5 mg 08/20/19 00:04 Dilaudid IV Q3H PRN Pain , Severe (7-10) Ceftriaxone Sodium 2 gm in 100 mls @ 200 mls/hr 08/20/19 10:00 08/22/19 09:35 Rocephin/Ns 2 Gm/100 Ml IV 200 mls/hr Q24HR LUIS FELIPE Administration Protocol Azithromycin 500 mg/ Sodium 250 mls @ 250 mls/hr 08/20/19 17:00 08/21/19 17:50 Chloride IV 08/22/19 23:59 250 mls/hr Q24H LUIS FELIPE Administration Protocol Vancomycin HCl 1,250 mg/ 275 mls @ 166.667 mls/hr 08/22/19 10:00 08/22/19 12:11 Sodium Chloride IV 166.667 mls/hr Q12H LUIS FELIPE Administration Insulin Human Lispro 0 unit 08/20/19 07:30 08/22/19 08:26 Humalog SUB-Q Not Given ACHS [facility] Protocol Latanoprost 1 drops 08/20/19 22:00 08/21/19 23:15 Latanoprost 0.005% OU 1 drops QHS LUIS FELIPE Administration Linagliptin 5 mg 08/20/19 10:00 08/22/19 09:36 Tradjenta PO 5 mg QDAY LUIS FELIPE Administration Metoclopramide HCl 5 mg 08/20/19 00:04 Reglan IV Q6H PRN Nausea And Vomiting Metoprolol Tartrate 50 mg 08/20/19 01:00 08/22/19 09:39 Metoprolol PO Not Given BID [facility] Miscellaneous Medication 1 each 08/19/19 23:45 08/20/19 03:40 Dorzolamide/Timolol/Pf [Dorzolamide-Timolol 2%-0.5%] OP Not Given BID [facility] Ondansetron HCl 4 mg 08/20/19 00:04 Zofran IV Q8H PRN Nausea And Vomiting Oxycodone/Acetaminophen 1 tab 08/20/19 00:04 08/22/19 12:11 Percocet 5/325 PO 1 tab Q6H PRN Administration Pain, Moderate (4-6) Pantoprazole Sodium 40 mg 08/20/19 10:00 08/22/19 09:37 Protonix PO 40 mg QDAY LUIS FELIPE Administration Sodium Chloride 10 ml 08/20/19 10:00 08/22/19 09:39 Sodium Chloride Flush Syringe 10 Ml IV 10 ml BID LUIS FELIPE Administration Sodium Chloride 10 ml 08/20/19 00:04 Sodium Chloride Flush Syringe 10 Ml IV PRN PRN LINE FLUSH
--- NOTE | 2019-08-22 15:30 | Consultation ---
History of Present Illness - Reason for Consult Consult date: 08/22/19 - History of Present Illness 74-year-old male past medical history glaucoma, CHF, type 2 diabetes, GERD, gallbladder cancer reportedly diagnosed recently at [place]. He was admitted to the hospital complaining of palpitations. He was sent to the emergency room from his [facility] as he was having low-grade temperatures associated tachycardia and hypotension at his nursing facility. He otherwise denies any complaints at this time. He has a chronic sacral wound and a chronic right foot wound is well. Afebrile since admission with a normal white count. Currently seeing ceftriaxone and azithromycin. He is tachycardic. Blood cultures currently with MSSA. He does have an indwelling line from an outside hospital. [facility]. Imaging personally reviewed: CT chest: Groundglass opacity left upper lobe. Echocardiogram no vegetations evident. Review of Systems: Bold if positive, otherwise negative General: fevers, chills, rigors HEENT: visual disturbance, diplopia, eye pain Respiratory: cough, sputum, hemoptysis, shortness of breath Cardiovascular: chest pain, syncope Gastrointestinal: nausea, vomiting, diarrhea, abdominal pain Genitourinary: dysuria, hematuria, flank pain Musculoskeletal: neck pain, back pain, joint pain, edema Neurologic: headaches, seizures Hematologic: easy bruising or bleeding Endocrine: night sweats, acute weight loss Skin: rash, jaundice, redness Psychiatric: suicidal, homicidal ideation Past History Past Medical History: diabetes, heart failure Past Surgical History: No surgical history Social history: no significant social history Family history: no significant family history Medications and Allergies Allergies Allergy/AdvReac Type Severity Reaction Status Date / Time NSAIDS (Non-Steroidal Allergy Unknown Verified 08/19/19 16:47 Anti-Inflamma Home Medications Medication Instructions Recorded Confirmed Last Taken Type Ascorbic Acid [Vitamin C] 500 mg PO QDAY 08/19/19 08/19/19 Unknown History Bismuth Tribromoph/Petrolatum 1 each TP QDAY 08/19/19 08/19/19 Unknown History [Xeroform 5"X9" Gauze Strip] Clopidogrel [Plavix] 75 mg PO QDAY 08/19/19 08/19/19 Unknown History Clotrimazole 1% [Lotrimin] 1 applic TP BID 08/19/19 08/19/19 Unknown History Cyanocobalamin [Vitamin B-12] 500 mcg PO DAILY 08/19/19 08/19/19 Unknown History Docusate Sodium [Colace] 100 mg PO BID PRN 08/19/19 08/19/19 Unknown History Dorzolamide/Timolol/Pf 1 each OP BID 08/19/19 08/19/19 Unknown History [Dorzolamide-Timolol 2%-0.5%] Ferrous Sulfate [Feosol] 325 mg PO QDAY 08/19/19 08/19/19 Unknown History Folic Acid [Folvite] 1 mg PO QDAY 08/19/19 08/19/19 Unknown History Furosemide [Lasix TAB] 40 mg PO QDAY 08/19/19 08/19/19 Unknown History Gabapentin [Neurontin] 300 mg PO BID 08/19/19 08/19/19 Unknown History Lanolin /Mo/W.pet/[place] (Nf) 30 applic TP TID 08/19/19 08/19/19 Unknown History [EUCERIN (nf)] Linagliptin [Tradjenta] 5 mg PO QDAY 08/19/19 08/19/19 Unknown History Loratadine [Claritin] 10 mg PO QDAY 08/19/19 08/19/19 Unknown History Oxycodone HCl [roxiCODONE] 30 mg PO Q6HR 08/19/19 08/19/19 Unknown History Pantoprazole [Protonix] 40 mg PO QDAY 08/19/19 08/19/19 Unknown History Travoprost 5 ml OP QHS 08/19/19 08/19/19 Unknown History diphenhydrAMINE [Benadryl CAP] 25 mg PO Q6HR PRN 08/19/19 08/19/19 Unknown History Active Meds: Active Medications Acetaminophen (Tylenol) 650 mg PO Q4H PRN PRN Reason: Pain MILD(1-3)/Fever >100.5/TIJERINA Ascorbic Acid (Vitamin C) 500 mg PO QDAY COUNT INCLUDES THE [facility] Last Admin: 08/22/19 09:38 Dose: 500 mg Documented by: Azithromycin (Zithromax) 500 mg PO QDAY COUNT INCLUDES THE [facility] Cetirizine HCl (Cetirizine) 10 mg PO QDAY COUNT INCLUDES THE [facility] Last Admin: 08/22/19 09:38 Dose: 10 mg Documented by: Clopidogrel Bisulfate (Plavix) 75 mg PO QDAY COUNT INCLUDES THE [facility] Last Admin: 08/22/19 09:38 Dose: 75 mg Documented by: Cyanocobalamin (Vitamin B-12) 500 mcg PO DAILY COUNT INCLUDES THE [facility] Last Admin: 08/22/19 09:37 Dose: 500 mcg Documented by: Digoxin (Lanoxin) 0.125 mg PO DAILY@1700 LUIS FELIPE Diphenhydramine HCl (Benadryl) 25 mg PO Q6H PRN PRN Reason: Itching Docusate Sodium (Colace) 100 mg PO BID PRN PRN Reason: Constipation Ferrous Sulfate (Feosol) 325 mg PO QDAY COUNT INCLUDES THE [facility] Last Admin: 08/22/19 09:38 Dose: 325 mg Documented by: Folic Acid (Folvite) 1 mg PO QDAY COUNT INCLUDES THE [facility] Last Admin: 08/22/19 09:38 Dose: 1 mg Documented by: Furosemide (Lasix) 40 mg PO QDAY COUNT INCLUDES THE [facility] Last Admin: 08/22/19 09:38 Dose: 40 mg Documented by: Gabapentin (Gabapentin) 300 mg PO BID COUNT INCLUDES THE [facility] Last Admin: 08/22/19 09:38 Dose: 300 mg Documented by: Hydromorphone HCl (Dilaudid) 0.5 mg IV Q3H PRN PRN Reason: Pain , Severe (7-10) Ceftriaxone Sodium (Rocephin/Ns 2 Gm/100 Ml) 2 gm in 100 mls @ 200 mls/hr IV Q24HR COUNT INCLUDES THE [facility]; Protocol Last Admin: 08/22/19 09:35 Dose: 200 mls/hr Documented by: Azithromycin 500 mg/ Sodium (Chloride) 250 mls @ 250 mls/hr IV Q24H COUNT INCLUDES THE [facility]; Protocol Stop: 08/22/19 23:59 Last Admin: 08/21/19 17:50 Dose: 250 mls/hr Documented by: Vancomycin HCl 1,250 mg/ (Sodium Chloride) 275 mls @ 166.667 mls/hr IV Q12H COUNT INCLUDES THE [facility] Last Admin: 08/22/19 12:11 Dose: 166.667 mls/hr Documented by: Insulin Human Lispro (Humalog) 0 unit SUB-Q ACHS COUNT INCLUDES THE [facility]; Protocol Last Admin: 08/22/19 08:26 Dose: Not Given Documented by: Latanoprost (Latanoprost 0.005%) 1 drops OU QHS COUNT INCLUDES THE [facility] Last Admin: 08/21/19 23:15 Dose: 1 drops Documented by: Linagliptin (Tradjenta) 5 mg PO QDAY COUNT INCLUDES THE [facility] Last Admin: 08/22/19 09:36 Dose: 5 mg Documented by: Metoclopramide HCl (Reglan) 5 mg IV Q6H PRN PRN Reason: Nausea And Vomiting Metoprolol Tartrate (Metoprolol) 50 mg PO BID COUNT INCLUDES THE [facility] Last Admin: 08/22/19 09:39 Dose: Not Given Documented by: Miscellaneous Medication (Dorzolamide/Timolol/Pf [Dorzolamide-Timolol 2%-0.5%]) 1 each OP BID COUNT INCLUDES THE [facility] Last Admin: 08/20/19 03:40 Dose: Not Given Documented by: Ondansetron HCl (Zofran) 4 mg IV Q8H PRN PRN Reason: Nausea And Vomiting Oxycodone/Acetaminophen (Percocet 5/325) 1 tab PO Q6H PRN PRN Reason: Pain, Moderate (4-6) Last Admin: 08/22/19 12:11 Dose: 1 tab Documented by: Pantoprazole Sodium (Protonix) 40 mg PO QDAY COUNT INCLUDES THE [facility] Last Admin: 08/22/19 09:37 Dose: 40 mg Documented by: Sodium Chloride (Sodium Chloride Flush Syringe 10 Ml) 10 ml IV BID COUNT INCLUDES THE [facility] Last Admin: 08/22/19 09:39 Dose: 10 ml Documented by: Sodium Chloride (Sodium Chloride Flush Syringe 10 Ml) 10 ml IV PRN PRN PRN Reason: LINE FLUSH Physical Examination - Physical Exam Narrative exam: Physical Exam: Constitutional: Alert, cooperative. No acute distress Head, Ears, Nose: Normocephalic, atraumatic. External ears, nose normal Eyes: Conjunctivae/corneas clear. No icterus. No ptosis. Neck: Supple, no meningeal signs Oral: dentition fair, no thrush Cardiovascular: S1, S2 normal. Respiratory: Good air entry, clear to auscultation bilaterally GI: Soft, non-tender; bowel sounds normal. No peritoneal signs. Musculoskeletal: Sacral wound, right foot wound. Right-sided line Skin: No rash or abscess Hem/Lymphatic: No palpable cervical or supraclavicular nodes. No lymphangitis Psych: Mood ok. Affect normal Neurological: Awake, alert, oriented. No gross abnormality - Constitutional Vitals: Vital Signs Temp Pulse Resp BP Pulse Ox 98.5 F 94 H 19 100/58 96 08/22/19 05:43 08/22/19 05:43 08/22/19 05:43 08/22/19 05:43 08/22/19 05:43 Temperature -Last 24 Hours Temperature 98.5 F Temperature 99.0 F Temperature 98.9 F Results - Labs CBC & Chem 7: 08/21/19 04:28 08/21/19 04:28 Labs: Abnormal lab results 08/22/19 Range/Units 11:28 POC Glucose 123 H (70-105) Assessment and Plan Cultures: Blood culture 08/19/2019 MSSA Urine culture 08/19/2019 no growth to date A/P: 74-year-old male past medical history glaucoma, CHF, type 2 diabetes, GERD, gallbladder cancer admitted for palpitations, found to have MSSA bacteremia #MSSA bacteremia: recommend changing from CTX/azithromycin to cefazolin to treat the bacteremia. Will order repeat blood cultures. Line needs to be removed as well. Ok to replace if needed after 48 hours of negative cultures. Will need 4 weeks of antibiotics. His source is likely either his indwelling line or his chronic wounds on the sacrum or the right foot. Echo without evidence of endocarditis. #Pneumonia: has been receiving treatment, though he does not complain of any pulmonary complaints. His test request for COVID-19 was rejected from the [facility]. #Diabetes: tight glycemic control for best outcomes. Recs: -Okay to remove from isolation -Stop ceftriaxone and azithromycin -Start cefazolin 2 g every 8 hours will need 4 weeks of therapy from negative cultures -Ordered repeat blood cultures -Needs removal of line as likely contaminated with MSSA. Thank you for the consult, we will continue to follow. Cr Garcia MD [facility] ([facility] M: [phone] O: [phone] F: [phone]
[2019-08-22] MEDS: DIGOXIN 0.125 MG TAB PO SCH (17:23)
[2019-08-22] MEDS: LATANOPROST 0.005% OPHTH SOLN 2.5 ML OU SCH (21:49)
[2019-08-23 05:39] LABS: Hematocrit 23.9 % (35.5-45.6); Mean Corpuscular HGB Conc 33 % (32-34); Mean Corpuscular Volume 92 fl (84-94); Platelet Count 197 K/mm3 (140-440); Red Cell Distribution Width 14.4 % (13.2-15.2)
[2019-08-23 05:52] LABS: Calcium 7.8 mg/dL (8.4-10.2)
[2019-08-23] MEDS: INSULIN LISPRO 100 UNIT/ML SUB-Q SCH ×4 (08:14→21:55)
[2019-08-23] MEDS: ASCORBIC ACID 500 MG TAB PO SCH (09:45)
[2019-08-23] MEDS: FERROUS SULFATE 325 MG TAB PO SCH (09:46)
[2019-08-23] MEDS: GABAPENTIN 300 MG CAP PO SCH ×2 (09:46→21:54)
[2019-08-23] MEDS: CYANOCOBALAMIN (VIT B-12) 1000 MCG TAB PO SCH (09:46)
[2019-08-23] MEDS: LINAGLIPTIN 5 MG TAB PO SCH (09:46)
[2019-08-23] MEDS: CLOPIDOGREL 75 MG TAB PO SCH (09:46)
[2019-08-23] MEDS: FOLIC ACID 1 MG TAB PO SCH (09:46)
[2019-08-23] MEDS: CETIRIZINE 10 MG TAB PO SCH (09:46)
[2019-08-23] MEDS: PANTOPRAZOLE 40 MG TAB PO SCH (09:47)
[2019-08-23] MEDS: FUROSEMIDE 40 MG TAB PO SCH (09:48)
[2019-08-23] MEDS ORDERED: AZITHROMYCIN 250 MG TAB PO SCH (10:00)
[2019-08-23] MEDS: METOPROLOL TARTRATE 50 MG TAB PO SCH ×2 (10:00→21:55)
--- NOTE | 2019-08-23 11:38 | Progress Note ---
Assessment and Plan Assessment and plan: Patient is a 74 yo man from [facility] with a history of glaucoma, CHF, type 2 DM, GERD, anemia, peripheral neuropathy and He reports a history of "gallbladder cancer", diagnosed at [place] a few months ago, he is currently receiving [facility] for low-grade fever, tachycardia and hypotension. He was found to be AFib with RVR and treated with IV Cardizem. Patient was found to have bilateral patchy pneumonia; therefore, COVID-[address] Flaherty, ED physician. * CTA chest IMPRESSION: 1. No CT evidence for pulmonary embolism. 2. Areas of groundglass opacity in the left upper lobe and linear opacities in the lower lobes posteriorly may be from an infectious or inflammatory process. Three- month follow-up CT is recommended to confirm resolution. 3. Tiny bilateral pleural effusions. 4. Splenomegaly and widespread lymphadenopathy are suggesti ve of an underlying lymphoproliferative disorder. 5. Anasarca. Atrial fibrillation with RVR: try to wean off IV Cardizem, IV heparin drip, Cardiology consulted Hypotension: adjust IV Cardizem, treat with IVFs Bilateral pneumonia: treat with ABX, COVID-19 suspect: [place] Dept [facility] denied request for testing Functional quadriplegia/bed bound per patient: conservative/preventive measures Bilateral foot pressure ulcers, poa: wound care Hyponatremia hypoOsm: treat with IVFs H/O Gallbladder Cancer Type 2 DM with complications, non-healing foot ulcers: treat with ssi, accuchecks and ADA AOCD: monitor CBC DVT ppx: on IV heparin 08/21/19: Patient still weak and doesn't feel well. So, I spoke with Pablo Causey and Survey sent but testing not approved by [facility]. Patient is growing GPC clusters 2/4 bottles, will start IV vancomycin, consult ID, continue contact isolation and remove droplet isolated for COVID19?. Now, why GPC if not contaminated. Patient does have indwelling central line placed at outside facility. Await ID consult ?line infection 08/22/19: MSSA bacteremia, will remove isolation and transfer off COVID floor, d/w Dr. Garcia regarding Line infection, he will evaluate. Await procalcitonin/LDH/CRP/d-dimer/ferritin. 08/23/19: Remove indwelling line, then back to [facility] History Interval history: Patient was seen and examined. Follow-up on current diagnosis of AFib, pna. Overnight uneventful as no events directly reported to me. Patient denies any chest pain, shortness breath, nausea/vomiting or severe headaches. Imaging, nursing note, chart, labs and old chart reviewed. Discussed with patient. Hospitalist Physical - Physical exam Narrative exam: Gen: chronically disable appearing, ill appearing, NAD, Awake, Alert, Orientated HEENT: NCAT, EOMI, PERRL, OP Clear Neck: supple, no adenopathy, no thyromegaly, no JVD CVS/Heart: irregular irregular normal S1S2, pulses present bilaterally Chest/Lungs: diminished bs bilateral, Symmetrical chest expansion, good air entry bilaterally, right chest wall IV line GI/Abdomen: soft, NTND, good bowel sounds, no guarding or rebound /Bladder: no suprapubic tenderness, no CVA or paraspinal tenderness Extermity/Skin: ble leg edema, foot ulcers bilateral MSK: FROM x 4 Neuro: CN 2-12 grossly intact, no new focal deficits, foot drop Psych: calm - Constitutional Vitals: Temp Pulse Resp BP Pulse Ox 97.5 F L 87 20 95/53 99 08/23/19 07:32 08/23/19 10:00 08/23/19 07:32 08/23/19 07:32 08/23/19 07:32 General appearance: Present: no acute distress CHENCHO score - Chencho Score Age > 65: (1) Yes Aspirin use within the Past 7 Days: (1) Yes 3 or more CAD Risk Factors: (1) Yes 2 or more Angina events in past 24 hrs: (0) No Known CAD with more than 50% Stenosis: (0) No Elevated Cardiac Markers: (0) No ST Deviation Greater than 0.5mm: (0) No CHENCHO Score: 3 Results - Labs CBC & Chem 7: 08/23/19 04:28 08/23/19 04:28 Labs: Laboratory Last Values WBC 5.8 K/mm3 (4.5-11.0) 08/23/19 04:28 RBC 2.60 M/mm3 (3.65-5.03) L 08/23/19 04:28 Hgb 8.0 gm/dl (11.8-15.2) L 08/23/19 04:28 Hct 23.9 % (35.5-45.6) L 08/23/19 04:28 MCV 92 fl (84-94) 08/23/19 04:28 MCH 31 pg (28-32) 08/23/19 04:28 MCHC 33 % (32-34) 08/23/19 04:28 RDW 14.4 % (13.2-15.2) 08/23/19 04:28 Plt Count 197 K/mm3 (140-440) 08/23/19 04:28 Add Manual Diff Complete 08/19/19 17:18 Total Counted 100 08/19/19 17:18 Seg Neuts % (Manual) 86.0 % (40.0-70.0) H 08/19/19 17:18 Band Neutrophils % 0 % 08/19/19 17:18 Lymphocytes % (Manual) 11.0 % (13.4-35.0) L 08/19/19 17:18 Reactive Lymphs % (Man) 0 % 08/19/19 17:18 Monocytes % (Manual) 3.0 % (0.0-7.3) 08/19/19 17:18 Eosinophils % (Manual) 0 % (0.0-4.3) 08/19/19 17:18 Basophils % (Manual) 0 % (0.0-1.8) 08/19/19 17:18 Metamyelocytes % 0 % 08/19/19 17:18 Myelocytes % 0 % 08/19/19 17:18 Promyelocytes % 0 % 08/19/19 17:18 Blast Cells % 0 % 08/19/19 17:18 Nucleated RBC % Not Reportable 08/19/19 17:18 Seg Neutrophils # Man 6.6 K/mm3 (1.8-7.7) 08/19/19 17:18 Band Neutrophils # 0.0 K/mm3 08/19/19 17:18 Lymphocytes # (Manual) 0.8 K/mm3 (1.2-5.4) L 08/19/19 17:18 Abs React Lymphs (Man) 0.0 K/mm3 08/19/19 17:18 Monocytes # (Manual) 0.2 K/mm3 (0.0-0.8) 08/19/19 17:18 Eosinophils # (Manual) 0.0 K/mm3 (0.0-0.4) 08/19/19 17:18 Basophils # (Manual) 0.0 K/mm3 (0.0-0.1) 08/19/19 17:18 Metamyelocytes # 0.0 K/mm3 08/19/19 17:18 Myelocytes # 0.0 K/mm3 08/19/19 17:18 Promyelocytes # 0.0 K/mm3 08/19/19 17:18 Blast Cells # 0.0 K/mm3 08/19/19 17:18 WBC Morphology Not Reportable 08/19/19 17:18 Hypersegmented Neuts Not Reportable 08/19/19 17:18 Hyposegmented Neuts Not Reportable 08/19/19 17:18 Hypogranular Neuts Not Reportable 08/19/19 17:18 Smudge Cells Not Reportable 08/19/19 17:18 Toxic Granulation Not Reportable 08/19/19 17:18 Toxic Vacuolation Not Reportable 08/19/19 17:18 Dohle Bodies Not Reportable 08/19/19 17:18 Pelger-Huet Anomaly Not Reportable 08/19/19 17:18 Josue Rods Not Reportable 08/19/19 17:18 Platelet Estimate Consistent w auto 08/19/19 17:18 Clumped Platelets Not Reportable 08/19/19 17:18 Plt Clumps, EDTA Not Reportable 08/19/19 17:18 Large Platelets Not Reportable 08/19/19 17:18 Giant Platelets Not Reportable 08/19/19 17:18 Platelet Satelliting Not Reportable 08/19/19 17:18 Plt Morphology Comment Not Reportable 08/19/19 17:18 RBC Morphology Not Reportable 08/19/19 17:18 Dimorphic RBCs Not Reportable 08/19/19 17:18 Polychromasia Rare 08/19/19 17:18 Hypochromasia Few 08/19/19 17:18 Poikilocytosis Not Reportable 08/19/19 17:18 Anisocytosis 1+ 08/19/19 17:18 Microcytosis Not Reportable 08/19/19 17:18 Macrocytosis Not Reportable 08/19/19 17:18 Spherocytes Not Reportable 08/19/19 17:18 Pappenheimer Bodies Not Reportable 08/19/19 17:18 Sickle Cells Not Reportable 08/19/19 17:18 Target Cells Not Reportable 08/19/19 17:18 Tear Drop Cells Rare 08/19/19 17:18 Ovalocytes Not Reportable 08/19/19 17:18 Helmet Cells Not Reportable 08/19/19 17:18 [place] Bodies Not Reportable 08/19/19 17:18 [place] Rings Not Reportable 08/19/19 17:18 Kim Cells Not Reportable 08/19/19 17:18 Bite Cells Not Reportable 08/19/19 17:18 Crenated Cell Not Reportable 08/19/19 17:18 Elliptocytes Not Reportable 08/19/19 17:18 Acanthocytes (Spur) Not Reportable 08/19/19 17:18 Rouleaux Not Reportable 08/19/19 17:18 Hemoglobin C Crystals Not Reportable 08/19/19 17:18 Schistocytes Not Reportable 08/19/19 17:18 Malaria parasites Not Reportable 08/19/19 17:18 Robert Bodies Not Reportable 08/19/19 17:18 Hem Pathologist Commnt No 08/19/19 17:18 PT 12.9 Sec. (12.2-14.9) 08/19/19 17:18 INR 0.96 (0.87-1.13) 08/19/19 17:18 APTT 31.5 Sec. (24.2-36.6) 08/19/19 17:18 D-Dimer 4302.71 ng/mlDDU (0-234) H 08/19/19 20:11 Heparin Anti-Xa Level 0.25 U.I./ml (0.3-0.7) L 08/21/19 09:17 Sodium 136 mmol/L (137-145) L 08/23/19 04:28 Potassium 3.0 mmol/L (3.6-5.0) L 08/23/19 04:28 Chloride 100.4 mmol/L (98-107) 08/23/19 04:28 Carbon Dioxide 24 mmol/L (22-30) 08/23/19 04:28 Anion Gap 15 mmol/L 08/23/19 04:28 BUN 11 mg/dL (9-20) 08/23/19 04:28 Creatinine 1.2 mg/dL (0.8-1.5) 08/23/19 04:28 Estimated GFR 60 ml/min 08/23/19 04:28 BUN/Creatinine Ratio 9 % 08/23/19 04:28 Glucose 88 mg/dL (75-100) 08/23/19 04:28 POC Glucose 108 (70-105) H 08/23/19 11:27 Hemoglobin A1c 3.0 % (4-6) L 08/20/19 04:08 Lactic Acid 1.20 mmol/L (0.7-2.0) 08/20/19 01:14 Calcium 7.8 mg/dL (8.4-10.2) L 08/23/19 04:28 Magnesium 1.80 mg/dL (1.7-2.3) 08/23/19 04:28 Total Bilirubin 0.70 mg/dL (0.1-1.2) 08/19/19 17:18 AST 35 units/L (5-40) 08/19/19 17:18 ALT 14 units/L (7-56) 08/19/19 17:18 Alkaline Phosphatase 132 units/L (35-129) H 08/19/19 17:18 Lactate Dehydrogenase 170 units/L (91-180) 08/19/19 17:18 Total Creatine Kinase 27 units/L (55-170) L 08/19/19 17:18 C-Reactive Protein 5.70 mg/dL (0.00-1.30) H 08/22/19 21:24 Total Protein 5.1 g/dL (6.3-8.2) L 08/19/19 17:18 Albumin 2.7 g/dL (3.9-5) L 08/19/19 17:18 Albumin/Globulin Ratio 1.1 % 08/19/19 17:18 Procalcitonin 0.52 ng/mL (<0.15) 08/22/19 21:24 TSH 2.660 mlU/mL (0.270-4.200) 08/19/19 17:18 Urine Color Yellow (Yellow) 08/19/19 20:20 Urine Turbidity Slightly-cloudy (Clear) 08/19/19 20:20 Urine pH 6.0 (5.0-7.0) 08/19/19 20:20 Ur Specific Bayard 1.014 (1.003-1.030) 08/19/19 20:20 Urine Protein 30 mg/dl mg/dL (Negative) 08/19/19 20:20 Urine Glucose (UA) Neg mg/dL (Negative) 08/19/19 20:20 Urine Ketones Neg mg/dL (Negative) 08/19/19 20:20 Urine Blood Neg (Negative) 08/19/19 20:20 Urine Nitrite Neg (Negative) 08/19/19 20:20 Urine Bilirubin Neg (Negative) 08/19/19 20:20 Urine Urobilinogen < 2.0 mg/dL (<2.0) 08/19/19 20:20 Ur Leukocyte Esterase Neg (Negative) 08/19/19 20:20 Urine WBC (Auto) 11.0 /HPF (0.0-6.0) H 08/19/19 20:20 Urine RBC (Auto) 4.0 /HPF (0.0-6.0) 08/19/19 20:20 Urine Bacteria (Auto) 1+ /HPF (Negative) 08/19/19 20:20 Urine Mucus Few /HPF 08/19/19 20:20 Salicylates < 0.3 mg/dL (2.8-20.0) L 08/19/19 17:18 Acetaminophen < 5.0 ug/mL (10.0-30.0) L 08/19/19 17:18 Influenza A (Rapid) Negative (Negative) 08/19/19 Unknown Influenza B (Rapid) Negative (Negative) 08/19/19 Unknown Blood Type O POSITIVE 08/19/19 17:25 Antibody Screen Negative 08/19/19 17:25 Microbiology: Microbiology 08/22/19 21:39 Peripheral/Venous Blood Culture - Preliminary Culture in Progress 08/22/19 21:40 Peripheral/Venous Blood Culture - Preliminary Culture in Progress 08/19/19 17:18 Peripheral/Venous Blood Culture - Preliminary NO GROWTH AFTER 72 HOURS 08/19/19 17:27 Peripheral/Venous Blood Culture - Preliminary Staphylococcus Aureus - Diagnostic Impressions Diagnostic Impressions: Echocardiogram 08/20/19 12:50 Transthoracic Echocardiogram Indication: Hypotension BP: 95/63 HR: 126 Conclusions *Rhythm is atrial flutter with RVR. *The left ventricular chamber size is normal. *Global left ventricular systolic function is at the lower limits of normal. *The estimated ejection fraction is 45-50%. *The left atrium is moderately dilated. *The right ventricular global systolic function is mildly reduced. *The right atrium is mildly dilated. *Mild aortic cusp sclerosis is present. Findings Procedure Info: The study quality is good. Left Ventricle: The left ventricular chamber size is normal. Global left ventricular systolic function is at the lower limits of normal. The estimated ejection fraction is 45-50%. Left Atrium: The left atrium is moderately dilated. Right Ventricle: The right ventricular cavity size is normal. The right ventricular global systolic function is mildly reduced. Right Atrium: The right atrium is mildly dilated. There is evidence of an atrial septal aneurysm. Aortic Valve: The aortic valve is trileaflet. Mild aortic cusp sclerosis is present. Mitral Valve: The mitral valve leaflets appear normal. Tricuspid Valve: There is mild tricuspid regurgitation. Pulmonic Valve: The pulmonic valve appears normal. Pericardium: There is no pericardial effusion. Aorta: The aortic root is not well visualized. Venous: The inferior vena cava is not visualized. Measurements Volumes/Mass Name Value Normal Range LA ESV SP 4CH (A/L) 47.14 ml - LA ESV SP 2CH (A/L) 75.33 ml - LA ESV BP (A/L) 61.28 ml - LA ESV BP (A/L) index 30.79 ml/m2 - LA ESV SP 4CH (MOD) 40.25 ml - LA ESV SP 2CH (MOD) 73.68 ml - LA ESV BP (MOD) 55.51 ml - LA ESV BP (MOD) index 27.89 ml/m2 - Diastolic/Systolic Function Name Value Normal Range MV E-wave Vmax 0.55 m/sec - MV deceleration time 151.78 msec - MV A-wave Vmax 0.96 m/sec - MV E:A ratio 0.57 ratio - Aortic Valve Name Value Normal Range AV Vmax 1.12 m/sec - AV VTI 14.55 cm - AV peak gradient 5 mmHg - AV mean gradient 2.85 mmHg - LVOT Vmax 0.82 m/sec - LVOT VTI 13.36 cm - LVOT peak gradient 2.67 mmHg - LVOT mean gradient 1.26 mmHg - Mitral Valve Name Value Normal Range MR Vmax 4.16 m/sec - Tricuspid Valve Name Value Normal Range TR Vmax 2.57 m/sec - TR peak gradient 26 mmHg - RAP 8 mmHg - RVSP 34 mmHg - Pulmonic Valve/Qp:Qs Name Value Normal Range PV Vmax 0.84 m/sec - PV peak gradient 2.84 mmHg - PV acceleration time 60.89 msec - Rojas/IV: Voiding Method Urinal IV Catheter Type [Right] PICC Line IV Catheter Type [Left INT / Saline Lock External Jugular] Active Medications - Current Medications Current Medications: Generic Name Dose Route Start Last Admin Trade Name Freq PRN Reason Stop Dose Admin Acetaminophen 650 mg 08/20/19 00:04 Tylenol PO Q4H PRN Pain MILD(1-3)/Fever >100.5/TIJERINA Ascorbic Acid 500 mg 08/20/19 10:00 08/23/19 09:45 Vitamin C PO 500 mg QDAY LUIS FELIPE Administration Cetirizine HCl 10 mg 08/20/19 10:00 08/23/19 09:46 Cetirizine PO 10 mg QDAY LUIS FELIPE Administration Clopidogrel Bisulfate 75 mg 08/20/19 10:00 08/23/19 09:46 Plavix PO 75 mg QDAY LUIS FELIPE Administration Cyanocobalamin 500 mcg 08/20/19 10:00 08/23/19 09:46 Vitamin B-12 PO 500 mcg DAILY LUIS FELIPE Administration Digoxin 0.125 mg 08/22/19 17:00 08/22/19 17:23 Lanoxin PO 0.125 mg DAILY@1700 LUIS FELIPE Administration Diphenhydramine HCl 25 mg 08/19/19 23:47 Benadryl PO Q6H PRN Itching Docusate Sodium 100 mg 08/19/19 23:47 Colace PO BID PRN Constipation Ferrous Sulfate 325 mg 08/20/19 10:00 08/23/19 09:46 Feosol PO 325 mg QDAY LUIS FELIPE Administration Folic Acid 1 mg 08/20/19 10:00 08/23/19 09:46 Folvite PO 1 mg QDAY LUIS FELIPE Administration Furosemide 40 mg 08/20/19 10:00 08/23/19 09:48 Lasix PO 40 mg QDAY LUIS FELIPE Administration Gabapentin 300 mg 08/19/19 23:45 08/23/19 09:46 Gabapentin PO 300 mg BID LUIS FELIPE Administration Hydromorphone HCl 0.5 mg 08/20/19 00:04 Dilaudid IV Q3H PRN Pain , Severe (7-10) Cefazolin Sodium 2 gm/ Sodium 100 mls @ 200 mls/hr 08/22/19 18:00 08/23/19 09:50 Chloride IV 200 mls/hr Q8H LUIS FELIPE Administration Protocol Insulin Human Lispro 0 unit 08/20/19 07:30 08/23/19 08:14 Humalog SUB-Q Not Given ACHS [facility] Protocol Latanoprost 1 drops 08/20/19 22:00 08/22/19 21:49 Latanoprost 0.005% OU 1 drops QHS LUIS FELIPE Administration Linagliptin 5 mg 08/20/19 10:00 08/23/19 09:46 Tradjenta PO 5 mg QDAY [facility] Administration Metoclopramide HCl 5 mg 08/20/19 00:04 Reglan IV Q6H PRN Nausea And Vomiting Metoprolol Tartrate 50 mg 08/20/19 01:00 08/22/19 21:50 Metoprolol PO Not Given BID [facility] Miscellaneous Medication 1 each 08/19/19 23:45 08/20/19 03:40 Dorzolamide/Timolol/Pf [Dorzolamide-Timolol 2%-0.5%] OP Not Given BID [facility] Ondansetron HCl 4 mg 08/20/19 00:04 Zofran IV Q8H PRN Nausea And Vomiting Oxycodone/Acetaminophen 1 tab 08/20/19 00:04 08/22/19 12:11 Percocet 5/325 PO 1 tab Q6H PRN Administration Pain, Moderate (4-6) Pantoprazole Sodium 40 mg 08/20/19 10:00 08/23/19 09:47 Protonix PO 40 mg QDAY LUIS FELIPE Administration Sodium Chloride 10 ml 08/20/19 10:00 08/23/19 09:49 Sodium Chloride Flush Syringe 10 Ml IV 10 ml BID LUIS FELIPE Administration Sodium Chloride 10 ml 08/20/19 00:04 Sodium Chloride Flush Syringe 10 Ml IV PRN PRN LINE FLUSH
[2019-08-23] MEDS ORDERED: LIDOCAINE (1%) 10 MG/1 ML VIAL 20 ML MDV INFILTRATI ONE (13:45)
--- NOTE | 2019-08-23 14:19 | Consultation ---
History of Present Illness - Reason for Consult Consult date: 08/23/19 Bacteremia Requesting physician: PURNIMA WADE - History of Present Illness 74-year-old male past medical history glaucoma, CHF, type 2 diabetes, GERD, gallbladder cancer reportedly diagnosed recently at [place]. He was admitted to the hospital complaining of palpitations. He was sent to the emergency room from his custodial as he was having low-grade temperatures associated tachycardia and hypotension at his nursing facility. He otherwise denies any complaints at this time. He has a chronic sacral wound and a chronic right foot wound is well. Afebrile since admission with a normal white count. Currently seeing ceftriaxone and azithromycin. He is tachycardic. Blood cultures currently with MSSA. He does have an indwelling line from an outside hospital. His COVID-19 testing from [facility] was rejected. Consulted for line removal. Patient has had chemotherapy for his gallbladder cancer, and has completed his chemo regimen. He is now starting radiation and has no further need for central access. He previously had a port which was malfunctioning which is why he had a tunneled catheter placed for chemotherapy. Imaging personally reviewed: CT chest: Groundglass opacity left upper lobe. Echocardiogram no vegetations evident. Review of Systems: Bold if positive, otherwise negative General: fevers, chills, rigors HEENT: visual disturbance, diplopia, eye pain Respiratory: cough, sputum, hemoptysis, shortness of breath Cardiovascular: chest pain, syncope Gastrointestinal: nausea, vomiting, diarrhea, abdominal pain Genitourinary: dysuria, hematuria, flank pain Musculoskeletal: neck pain, back pain, joint pain, edema Neurologic: headaches, seizures Hematologic: easy bruising or bleeding Endocrine: night sweats, acute weight loss Skin: rash, jaundice, redness Psychiatric: suicidal, homicidal ideation Past History Past Medical History: diabetes, heart failure Past Surgical History: No surgical history Social history: no significant social history Family history: no significant family history Medications and Allergies Allergies Allergy/AdvReac Type Severity Reaction Status Date / Time NSAIDS (Non-Steroidal Allergy Unknown Verified 08/19/19 16:47 Anti-Inflamma Home Medications Medication Instructions Recorded Confirmed Last Taken Type Ascorbic Acid [Vitamin C] 500 mg PO QDAY 08/19/19 08/19/19 Unknown History Bismuth Tribromoph/Petrolatum 1 each TP QDAY 08/19/19 08/19/19 Unknown History [Xeroform 5"X9" Gauze Strip] Clopidogrel [Plavix] 75 mg PO QDAY 08/19/19 08/19/19 Unknown History Clotrimazole 1% [Lotrimin] 1 applic TP BID 08/19/19 08/19/19 Unknown History Cyanocobalamin [Vitamin B-12] 500 mcg PO DAILY 08/19/19 08/19/19 Unknown History Docusate Sodium [Colace] 100 mg PO BID PRN 08/19/19 08/19/19 Unknown History Dorzolamide/Timolol/Pf 1 each OP BID 08/19/19 08/19/19 Unknown History [Dorzolamide-Timolol 2%-0.5%] Ferrous Sulfate [Feosol] 325 mg PO QDAY 08/19/19 08/19/19 Unknown History Folic Acid [Folvite] 1 mg PO QDAY 08/19/19 08/19/19 Unknown History Furosemide [Lasix TAB] 40 mg PO QDAY 08/19/19 08/19/19 Unknown History Gabapentin [Neurontin] 300 mg PO BID 08/19/19 08/19/19 Unknown History Lanolin /Mo/W.pet/Gates (Nf) 30 applic TP TID 08/19/19 08/19/19 Unknown History [EUCERIN (nf)] Linagliptin [Tradjenta] 5 mg PO QDAY 08/19/19 08/19/19 Unknown History Loratadine [Claritin] 10 mg PO QDAY 08/19/19 08/19/19 Unknown History Oxycodone HCl [roxiCODONE] 30 mg PO Q6HR 08/19/19 08/19/19 Unknown History Pantoprazole [Protonix] 40 mg PO QDAY 08/19/19 08/19/19 Unknown History Travoprost 5 ml OP QHS 08/19/19 08/19/19 Unknown History diphenhydrAMINE [Benadryl CAP] 25 mg PO Q6HR PRN 08/19/19 08/19/19 Unknown History Active Meds: Active Medications Acetaminophen (Tylenol) 650 mg PO Q4H PRN PRN Reason: Pain MILD(1-3)/Fever >100.5/TIJERINA Ascorbic Acid (Vitamin C) 500 mg PO QDAY LUIS FELIPE Last Admin: 08/23/19 09:45 Dose: 500 mg Documented by: Cetirizine HCl (Cetirizine) 10 mg PO QDAY COUNT INCLUDES THE [facility] Last Admin: 08/23/19 09:46 Dose: 10 mg Documented by: Clopidogrel Bisulfate (Plavix) 75 mg PO QDAY COUNT INCLUDES THE [facility] Last Admin: 08/23/19 09:46 Dose: 75 mg Documented by: Cyanocobalamin (Vitamin B-12) 500 mcg PO DAILY COUNT INCLUDES THE [facility] Last Admin: 08/23/19 09:46 Dose: 500 mcg Documented by: Digoxin (Lanoxin) 0.125 mg PO DAILY@1700 COUNT INCLUDES THE [facility] Last Admin: 08/22/19 17:23 Dose: 0.125 mg Documented by: Diphenhydramine HCl (Benadryl) 25 mg PO Q6H PRN PRN Reason: Itching Docusate Sodium (Colace) 100 mg PO BID PRN PRN Reason: Constipation Ferrous Sulfate (Feosol) 325 mg PO QDAY COUNT INCLUDES THE [facility] Last Admin: 08/23/19 09:46 Dose: 325 mg Documented by: Folic Acid (Folvite) 1 mg PO QDAY COUNT INCLUDES THE [facility] Last Admin: 08/23/19 09:46 Dose: 1 mg Documented by: Furosemide (Lasix) 40 mg PO QDAY COUNT INCLUDES THE [facility] Last Admin: 08/23/19 09:48 Dose: 40 mg Documented by: Gabapentin (Gabapentin) 300 mg PO BID COUNT INCLUDES THE [facility] Last Admin: 08/23/19 09:46 Dose: 300 mg Documented by: Hydromorphone HCl (Dilaudid) 0.5 mg IV Q3H PRN PRN Reason: Pain , Severe (7-10) Cefazolin Sodium 2 gm/ Sodium (Chloride) 100 mls @ 200 mls/hr IV Q8H COUNT INCLUDES THE [facility]; Protocol Last Admin: 08/23/19 09:50 Dose: 200 mls/hr Documented by: Insulin Human Lispro (Humalog) 0 unit SUB-Q ACHS COUNT INCLUDES THE [facility]; Protocol Last Admin: 08/23/19 12:27 Dose: Not Given Documented by: Latanoprost (Latanoprost 0.005%) 1 drops OU QHS COUNT INCLUDES THE [facility] Last Admin: 08/22/19 21:49 Dose: 1 drops Documented by: Linagliptin (Tradjenta) 5 mg PO QDAY COUNT INCLUDES THE [facility] Last Admin: 08/23/19 09:46 Dose: 5 mg Documented by: Metoclopramide HCl (Reglan) 5 mg IV Q6H PRN PRN Reason: Nausea And Vomiting Metoprolol Tartrate (Metoprolol) 50 mg PO BID COUNT INCLUDES THE [facility] Last Admin: 08/22/19 21:50 Dose: Not Given Documented by: Miscellaneous Medication (Dorzolamide/Timolol/Pf [Dorzolamide-Timolol 2%-0.5%]) 1 each OP BID COUNT INCLUDES THE [facility] Last Admin: 08/20/19 03:40 Dose: Not Given Documented by: Ondansetron HCl (Zofran) 4 mg IV Q8H PRN PRN Reason: Nausea And Vomiting Oxycodone/Acetaminophen (Percocet 5/325) 1 tab PO Q6H PRN PRN Reason: Pain, Moderate (4-6) Last Admin: 08/22/19 12:11 Dose: 1 tab Documented by: Pantoprazole Sodium (Protonix) 40 mg PO QDAY COUNT INCLUDES THE [facility] Last Admin: 08/23/19 09:47 Dose: 40 mg Documented by: Sodium Chloride (Sodium Chloride Flush Syringe 10 Ml) 10 ml IV BID COUNT INCLUDES THE [facility] Last Admin: 08/23/19 09:49 Dose: 10 ml Documented by: Sodium Chloride (Sodium Chloride Flush Syringe 10 Ml) 10 ml IV PRN PRN PRN Reason: LINE FLUSH Review of Systems All systems: negative (see HPI) Exam - Constitutional Vitals: Temp Pulse Resp BP Pulse Ox 98.1 F 72 20 103/62 95 08/23/19 13:20 08/23/19 13:20 08/23/19 13:20 08/23/19 13:20 08/23/19 13:20 General appearance: Present: no acute distress - EENT Eyes: Present: EOM intact ENT: hearing intact - Respiratory Respiratory effort: normal - Psychiatric Psychiatric: appropriate mood/affect, cooperative Results - Labs CBC & Chem 7: 08/23/19 04:28 08/23/19 04:28 Labs: Abnormal lab results 08/22/19 08/22/19 08/23/19 Range/Units 16:48 21:24 04:28 RBC 2.60 L (3.65-5.03) M/mm3 Hgb 8.0 L (11.8-15.2) gm/dl Hct 23.9 L (35.5-45.6) % Sodium (137-145) mmol/L Potassium (3.6-5.0) mmol/L POC Glucose 108 H (70-105) Calcium (8.4-10.2) mg/dL C-Reactive Protein 5.70 H (0.00-1.30) mg/dL 08/23/19 08/23/19 Range/Units 04:28 11:27 RBC (3.65-5.03) M/mm3 Hgb (11.8-15.2) gm/dl Hct (35.5-45.6) % Sodium 136 L (137-145) mmol/L Potassium 3.0 L (3.6-5.0) mmol/L POC Glucose 108 H (70-105) Calcium 7.8 L (8.4-10.2) mg/dL C-Reactive Protein (0.00-1.30) mg/dL Assessment and Plan 74-year-old male with bacteremia and right internal jugular tunneled catheter used for chemotherapy for gallbladder malignancy. Patient previously had a port that was malfunctioning which required switching to a right internal jugular tunneled catheter. He has completed his chemotherapy regimen and is now starting radiation. No further need for tunneled catheter, and patient has bacteremia. Upon inspection of the site, there is an exit site infection at the catheter exit site. Recommend tunneled line removal. Risks, benefits, and alternatives discussed. Recommend application of small amount of triple antibiotic at the exit site for 7 days.
--- NOTE | 2019-08-23 14:34 | Operative Report ---
Operative Report Operative Report: EXAM: Tunneled catheter removal DATE: 08/23/2019 INDICATION: Bacteremia with indwelling tunneled catheter and exit site infection. MEDICATIONS: Please see nursing report for full details. [employer] HELPER: ERICA YUSUF MD CONTRAST: None PROCEDURE: The risks, benefits, and alternatives were discussed; written informed consent was obtained. The patient was positioned with the head towards the contralateral side. The tunneled catheter was prepped and draped in a sterile fashion. The sutures were cut. Using a hemostat, gentle blunt dissection was performed and catheter was partially extracted. The catheter was extracted and pressure was held at the venotomy and dermatotomy site until hemostasis was achieved. Sterile bandage was then applied. The patient tolerated the procedure without issue. FINDINGS: Successful removal of the tunneled catheter. IMPRESSION: Successful removal of the right internal jugular tunneled catheter.
[2019-08-23] MEDS: DIGOXIN 0.125 MG TAB PO SCH (17:20)
[2019-08-23] MEDS: LATANOPROST 0.005% OPHTH SOLN 2.5 ML OU SCH (21:57)
[2019-08-24] MEDS: INSULIN LISPRO 100 UNIT/ML SUB-Q SCH ×2 (08:22→12:27)
[2019-08-24] MEDS: CETIRIZINE 10 MG TAB PO SCH (09:40)
[2019-08-24] MEDS: CLOPIDOGREL 75 MG TAB PO SCH (09:40)
[2019-08-24] MEDS: CYANOCOBALAMIN (VIT B-12) 1000 MCG TAB PO SCH (09:40)
[2019-08-24] MEDS: ASCORBIC ACID 500 MG TAB PO SCH (09:40)
[2019-08-24] MEDS: GABAPENTIN 300 MG CAP PO SCH (09:41)
[2019-08-24] MEDS: FOLIC ACID 1 MG TAB PO SCH (09:41)
[2019-08-24] MEDS: FUROSEMIDE 40 MG TAB PO SCH (09:41)
[2019-08-24] MEDS: FERROUS SULFATE 325 MG TAB PO SCH (09:41)
[2019-08-24] MEDS: PANTOPRAZOLE 40 MG TAB PO SCH (09:41)
[2019-08-24] MEDS: LINAGLIPTIN 5 MG TAB PO SCH (09:41)
[2019-08-24] MEDS: METOPROLOL TARTRATE 50 MG TAB PO SCH (10:00)
[2019-08-24] MEDS ORDERED: POTASSIUM CHLORIDE ER 20 MEQ TAB PO ONE (13:20)
--- NOTE | 2019-08-24 13:25 | Discharge Summary ---
Providers - Providers Date of Admission: 08/19/19 18:53 Date of discharge: 08/24/19 Attending physician: ESTHER HAGEN 08/20/19 19:36 Consult to Wound/ET Nurse [CONS] Routine Reason For Exam: both legs and sacral 08/22/19 14:47 Consult to Physician [CONS] Routine Comment: Dr. olvera patient/ wes Consulting Provider: PURNIMA WADE Physician Instructions: I notified Reason For Exam: positive blood cultures, ?line infection, MSSA dave 08/22/19 15:44 Consult to Interventional Radiology [CONS] Routine Consulting Provider: ERICA ORDOÑEZ Reason For Exam: Remove indwelling line Place consult to:: OFFICE Notified:: YES Phone number called:: [phone] Was contact made?: Yes If yes, spoke with:: BRANDEE Time called:: 18:02 Comment:: spoke to dr. hennessy/ wes Primary care physician: JEWELRY ESTIMATOR Hospitalization Condition: Stable Hospital course: Patient is a 74 yo man from [facility] with a history of glaucoma, CHF, type 2 DM, GERD, anemia, peripheral neuropathy and He reports a history of "gallbladder cancer", diagnosed at [place] a few months ago, he is currently receiving radiation therapy [facility] for low-grade fever, tachycardia and hypotension. He was found to be AFib with RVR and treated with IV Cardizem. Patient was found to have bilateral patchy pneumonia; therefore, COVID-[address] Flaherty, ED physician. * CTA chest IMPRESSION: 1. No CT evidence for pulmonary embolism. 2. Areas of groundglass opacity in the left upper lobe and linear opacities in the lower lobes posteriorly may be from an infectious or inflammatory process. Three- month follow-up CT is recommended to confirm resolution. 3. Tiny bilateral pleural effusions. 4. Splenomegaly and widespread lymphadenopathy are suggestive of an underlying lymphoproliferative disorder. 5. Anasarca. Line Infection, poa Atrial fibrillation with RVR: try to wean off IV Cardizem, IV heparin drip, Cardiology consulted Hypotension: adjust IV Cardizem, treat with IVFs Bilateral pneumonia: treat with ABX, COVID-19 suspect: [place] [facility] denied request for testing Functional quadriplegia/bed bound per patient: conservative/preventive measures Bilateral foot pressure ulcers, poa: wound care Hyponatremia hypoOsm: treat with IVFs H/O Gallbladder Cancer s/p chemo, waiting on XRT Type 2 DM with complications, non-healing foot ulcers: treat with ssi, accuchecks and ADA AOCD: monitor CBC DVT ppx: on IV heparin 08/21/19: Patient still weak and doesn't feel well. So, I spoke with Pablo Causey and Survey sent but testing not approved by [facility]. Patient is growing GPC clusters 2/4 bottles, will start IV vancomycin, consult ID, continue contact isolation and remove droplet isolated for COVID19?. Now, why GPC if not contaminated. Patient does have indwelling central line placed at outside facility. Await ID consult ?line infection 08/22/19: MSSA bacteremia, will remove isolation and transfer off COVID floor, d/w Dr. Wade regarding Line infection, he will evaluate. Await procalcitonin/LDH/CRP/d-dimer/ferritin. 08/23/19: Remove indwelling line, then back to [facility] 08/24/19: Line removed yesterday, back to jail today, on Ancef 2g IM q8hrs x 4 weeks from 08/22/19 negative blood cultures (Last day September 18) Disposition: [id number]/TX-[id number] SNF [facility] CERT Time spent for discharge: 32 minutes Core Measure Documentation - Palliative Care Palliative Care/ Comfort Measures: Not Applicable - Core Measures Any of the following diagnoses?: none - VTE Discharge Requirements Deep Vein Thrombosis/Pulmonary Embolism Present on Admission: No Has pt received <5 days of overlap therapy or INR<2.0: No Anticoagulant overlap therapy prescribed at discharge: No Contraindication No Overlap Therapy order at DC: Not Indicated Exam - Physical Exam Narrative exam: Gen: chronically disable appearing, ill appearing, NAD, Awake, Alert, Orientated HEENT: NCAT, EOMI, PERRL, OP Clear Neck: supple, no adenopathy, no thyromegaly, no JVD CVS/Heart: irregular irregular normal S1S2, pulses present bilaterally Chest/Lungs: diminished bs bilateral, Symmetrical chest expansion, good air entry bilaterally, right chest wall IV line GI/Abdomen: soft, NTND, good bowel sounds, no guarding or rebound /Bladder: no suprapubic tenderness, no CVA or paraspinal tenderness Extermity/Skin: ble leg edema, foot ulcers bilateral MSK: FROM x 4 Neuro: CN 2-12 grossly intact, no new focal deficits, foot drop Psych: calm - Constitutional Vitals: Temp Pulse Resp BP Pulse Ox 97.5 F L 91 H 20 103/63 100 08/24/19 02:14 08/24/19 10:00 08/24/19 02:14 08/24/19 02:14 08/24/19 02:14 Plan Activity: other (no strenous activity) Diet: low salt, diabetic Special Instructions: record daily BP diary, record blood sugar diary Follow up with: LIZETT SAMANIEGO MD [Staff Physician] - 7 Days MEETA JO MD [Staff Physician] - 7 Days Prescriptions: Acetaminophen [Acetaminophen TAB] 325 mg PO Q4H PRN #30 tablet PRN Reason: Pain MILD(1-3)/Fever >100.5/TIJERINA ceFAZolin/NS 2 GM/100 ML [Ancef/Ns 2 gm/100 ml] 2 gm IM Q8HR #168 piggyback Digoxin [Lanoxin] 0.125 mg PO DAILY@1700 #30 tablet Metoprolol [Lopressor TAB] 50 mg PO BID #60 tablet oxyCODONE /ACETAMINOPHEN [Percocet 5/325 mg] 1 tab PO Q6H PRN #8 tablet PRN Reason: Pain , Severe (7-10)
[2019-08-24 14:01] VITALS: BP 98/57
== END 2019-08-24 16:40 | DRG 314 ==
LOC: ED 16:10 → 4A 18:53 → 3A 08-20 12:17 → 2B-ACE 08-22 17:25
PROVIDERS: ADMIT Internal Medicine; ATTEND Internal Medicine
PROC: 05PYX3Z Removal of Infusion Device from Upper Vein, External Approach (ICD-10-PCS; principal; 2019-08-23)
DX: T80.212A Local infection due to central venous catheter, initial encounter (principal); J18.9 Pneumonia, unspecified organism; R53.2 Functional quadriplegia; E87.1 Hypo-osmolality and hyponatremia; E44.0 Moderate protein-calorie malnutrition; E87.2 Acidosis; I48.92 Unspecified atrial flutter; I48.20 Chronic atrial fibrillation, unspecified; I95.9 Hypotension, unspecified; B95.61 Methicillin susceptible Staphylococcus aureus infection as the cause of diseases classified elsewhere; K21.9 Gastro-esophageal reflux disease without esophagitis; Z79.01 Long term (current) use of anticoagulants; L89.629 Pressure ulcer of left heel, unspecified stage; L89.619 Pressure ulcer of right heel, unspecified stage; K82.8 Other specified diseases of gallbladder; Z85.09 Personal history of malignant neoplasm of other digestive organs; Z88.6 Allergy status to analgesic agent; Z79.4 Long term (current) use of insulin; D64.9 Anemia, unspecified; I11.0 Hypertensive heart disease with heart failure; I50.9 Heart failure, unspecified; E11.42 Type 2 diabetes mellitus with diabetic polyneuropathy; Z82.49 Family history of ischemic heart disease and other diseases of the circulatory system; I25.10 Atherosclerotic heart disease of native coronary artery without angina pectoris; H40.9 Unspecified glaucoma; E11.621 Type 2 diabetes mellitus with foot ulcer; Z79.899 Other long term (current) drug therapy; Z92.21 Personal history of antineoplastic chemotherapy; Z03.818 Encounter for observation for suspected exposure to other biological agents ruled out
CPT/HCPCS: 36415; 71045; 71275; 80048; 80053; 80320; 81001; 82140; 82550; 82962; 83036; 83615; 83735; 84145; 84443; 85007; 85014; 85018; 85025; 85027; 85049; 85379; 85520; 85610; 85730; 86140; 86850; 86900; 86901; 87040; 87076; 87086; 87186; 87400; 93005; 93010; 93306; 94760; G0378; G0480; J0456; J0690; J0692; J0696; J1160; J1644; J1815; J2405; J3370; J7030; J7040; J7050; Q9967